=== PATIENT | female | born 1950 | race American Indian/Alaskan Native ===

== ENCOUNTER 2017-05-10 19:12 | Emergency (ER) | payer MEDICARE, OTHER ==
[2017-05-10 19:42] VITALS: BP 92/49
--- NOTE | 2017-05-10 20:53 | EDM.PDOC ---
ED HPI GENERAL MEDICAL PROBLEM - General Chief Complaint: Diabetic Complaint Stated Complaint: HIGH BLOOD SUGAR Time Seen by Provider: 05/10/17 20:40 Source of Information: Reports: Patient History Limitations: Reports: No Limitations - History of Present Illness INITIAL COMMENTS - FREE TEXT/NARRATIVE: This 67 yo female patient reports to the ED with elevated blood sugar levels over the past 2 weeks. The patient reports she was on Levaquin and an increased dose of Prednisone up to last Tuesday or . The patient has seen her primary care provider for the elevated blood sugar levels and was started on another medication to control her blood sugar levels. The patient reports her lowest blood sugar reading today was 255 (this morning). The patient has run blood sugars between 200 and 600 over the past 2 weeks. The patient does have a history of diabetes, COPD, and frequent upper respiratory tract infections. Onset: Gradual Duration: Week(s):, Constant Location: Reports: Other Quality: Reports: Dull Severity: Moderate Improves with: Reports: None Worsens with: Reports: None Associated Symptoms: Reports: Cough (chronic ), Shortness of Breath (chronic) - Related Data Allergies Allergy/AdvReac Type Severity Reaction Status Date / Time alendronate sodium AdvReac Unknown jaw pain Verified 10/13/15 12:47 [From Fosamax] Home Meds: Home Meds LORazepam 1 tab PO TID 11/03/14 [History] Theophylline [Theophylline Anhydrous] 1 tab PO BID 11/03/14 [History] Zolpidem [Ambien] 1 tab PO BEDTIME 11/03/14 [History] Albuterol/Ipratropium [DuoNeb 3.0-0.5 MG/3 ML] 3 ml INH Q4HR PRN 11/04/14 [ History] Aspirin [Halfprin] 81 mg PO DAILY 11/04/14 [History] Docusate Sodium [Colace] 1 cap PO BID PRN 11/04/14 [History] Montelukast [Singulair] 10 mg PO DAILY 11/04/14 [History] Multivitamin [Multivitamins] 1 tab PO DAILY 11/04/14 [History] Pramipexole Di-HCl [Pramipexole Dihydrochloride] 0.5 mg PO BEDTIME 11/04/14 [ History] QUEtiapine Fumarate [Seroquel] 25 mg PO BEDTIME 11/04/14 [History] Travoprost [Travatan Z 0.004% Ophth Soln] 1 drop EYEBOTH BEDTIME 11/04/14 [ History] atorvaSTATin Calcium [Atorvastatin Calcium] 20 mg PO BEDTIME 11/04/14 [History] buPROPion [Wellbutrin XL] 150 mg PO DAILY 11/04/14 [History] metFORMIN HCl [Metformin HCl] 500 mg PO BIDM 11/04/14 [History] Ferrous Sulfate [Iron] 325 mg PO DAILY 11/21/14 [History] Benzonatate [Tessalon Perles] 100 mg PO TID PRN #30 cap 11/27/14 [Rx] Budesonide [Pulmicort] 0.5 mg NEB BIDRT 10/13/15 [History] EPINEPHrine [Epipen] 0.3 mg SUBCUT ASDIRECTED PRN 10/13/15 [History] Tolterodine Tartrate 2 mg PO DAILY 10/13/15 [History] oxyCODONE HCl/Acetaminophen [Percocet 10-325 mg Tablet] 1 tab PO ASDIRECTED [History] glyBURIDE [Micronase] 5 mg PO ACBRK #30 tablet 10/17/15 [Rx] guaiFENesin [Robitussin] 100 mg PO Q6H PRN #1 bottle 10/17/15 [Rx] predniSONE [Prednisone] 10 mg PO DAILY #5 tablet 10/17/15 [Rx] Past Medical History HEENT History: Reports: Allergic Rhinitis, Cataract Respiratory History: Reports: Asthma, Bronchitis, Recurrent, COPD, SOB Genitourinary History: Reports: Urinary Incontinence Musculoskeletal History: Reports: Osteoporosis Other Musculoskeletal History: Restless Leg Syndrome Neurological History: Reports: Other (See Below) Other Neuro History: degenerative joint disease of the spine, closed fracture of cervical vertebra without neurological injury. Psychiatric History: Reports: Bipolar, Depression Endocrine/Metabolic History: Reports: Diabetes, Type II - Past Surgical History HEENT Surgical History: Reports: Cataract Surgery, Naso-Sinus Surgery Cardiovascular Surgical History: Reports: AAA Repair Female Surgical History: Reports: Hysterectomy Social & Family History - Family History Family Medical History: Noncontributory Cardiac: Reports: CAD Endocrine/Metabolic: Reports: Diabetes, type II Oncologic: Reports: Lung - Tobacco Use Smoking Status *Q: Former Smoker Years of Tobacco use: 40 Packs/Tins Daily: 0.5 Used Tobacco, but Quit: No Month Tobacco Last Used: October 2014 Second Hand Smoke Exposure: Yes - Caffeine Use Caffeine Use: Reports: Coffee, Tea - Alcohol Use Days Per Week of Alcohol Use: 0 - Recreational Drug Use Recreational Drug Use: No ED ROS GENERAL - Review of Systems Review Of Systems: ROS reveals no pertinent complaints other than HPI. ED EXAM GENERAL NO PERIP PULSE - Physical Exam Exam: See Below Exam Limited By: No Limitations General Appearance: Alert, WD/WN, Moderate Distress Eye Exam: Bilateral Eye: EOMI, Normal Inspection, PERRL Ears: Normal External Exam, Normal Canal, Hearing Grossly Normal, Normal TMs Nose: Normal Inspection, Normal Mucosa, No Blood Throat/Mouth: Normal Inspection, Normal Lips, Normal Teeth, Normal Gums, Normal Oropharynx, Normal Voice, No Airway Compromise Head: Atraumatic, Normocephalic Neck: Normal Inspection, Supple, Non-Tender, Full Range of Motion Respiratory/Chest: No Respiratory Distress, Lungs Clear, Normal Breath Sounds, No Accessory Muscle Use, Chest Non-Tender Cardiovascular: Normal Peripheral Pulses, Regular Rate, Rhythm, No Edema, No Gallop, No JVD, No Murmur, No Rub GI/Abdominal: Normal Bowel Sounds, Soft, Non-Tender, No Organomegaly, No Distention, No Abnormal Bruit, No Mass (Female) Exam: Deferred Rectal (Female) Exam: Deferred Back Exam: Normal Inspection, Full Range of Motion, NT Extremities: Normal Inspection, Normal Range of Motion, Non-Tender, Normal Capillary Refill, No Pedal Edema Neurological: Alert, Oriented, CN II-XII Intact, Normal Cognition, Normal Gait, Normal Reflexes, No Motor/Sensory Deficits Psychiatric: Normal Affect, Normal Mood Skin Exam: Warm, Dry, Intact, Normal Color, No Rash Lymphatic: No Adenopathy Course - Vital Signs Last Recorded V/S: Last Vital Signs Temp 35.9 C 05/10/17 19:22 Pulse 110 H 05/10/17 19:22 Resp 20 05/10/17 19:22 BP 92/49 L 05/10/17 19:22 Pulse Ox 100 05/10/17 19:22 - Orders/Labs/Meds Orders: Active Orders 24 hr Category Date Time Status Blood Glucose Check, Bedside [RC] ONETIME Care 05/10/17 19:26 Active Labs: Laboratory Tests 05/10/17 05/10/17 05/10/17 Range/Units 19:25 20:55 20:55 WBC 10.4 H (5.0-10.0) 10^3/uL RBC 5.26 (4.2-5.4) 10^6/uL Hgb 14.6 (12.0-16.0) g/dL Hct 46.6 (37.0-47.0) % MCV 88.6 D (80-100) fL MCH 27.8 (27.0-34.0) pg MCHC 31.3 L (33.0-35.0) g/dL Plt Count 225 (150-450) 10^3/uL Neut % (Auto) 77.1 H (42.2-75.2) % Lymph % (Auto) 16.6 L (20.5-50.1) % [place] % (Auto) 5.4 (2-8) % Eos % (Auto) 0.6 L (1.0-3.0) % Baso % (Auto) 0.3 (0.0-1.0) % Sodium 133 L (135-145) mmol/L Potassium 4.5 (3.6-5.0) mmol/L Chloride 91 L (101-111) mmol/L Carbon Dioxide 32.0 H (21.0-31.0) mmol/L Anion Gap 14.5 BUN 10 (7-18) mg/dL Creatinine 0.8 (0.6-1.3) mg/dL Est Cr Clr Drug Dosing 62.24 mL/min Estimated GFR (MDRD) > 60 BUN/Creatinine Ratio 12.50 Glucose 388 H (74-105) mg/dL POC Glucose 393 H (70-105) mg/dl Calcium 8.7 (8.4-10.2) mg/dl Total Bilirubin 0.6 (0.2-1.0) mg/dL AST 20 (10-42) IU/L ALT 22 (10-60) IU/L Alkaline Phosphatase 132 H (42-121) IU/L B-Natriuretic Peptide 34 (0-100) pg/ml Total Protein 7.0 (6.7-8.2) g/dl Albumin 3.9 (3.2-5.5) g/dl Globulin 3.1 Albumin/Globulin Ratio 1.26 Urine Color (YELLOW) Urine Appearance (CLEAR) Urine pH (5.0-9.0) Ur Specific [place] (1.005-1.030) Urine Protein (NEGATIVE) Urine Glucose (UA) (NEGATIVE) Urine Ketones (NEGATIVE) Urine Occult Blood (NEGATIVE) Urine Nitrite (NEGATIVE) Urine Bilirubin (NEGATIVE) Urine Urobilinogen (0.2-1.0) mg/dL Ur Leukocyte Esterase (NEGATIVE) Urine RBC /HPF Urine WBC (0-5/HPF) /HPF Ur Epithelial Cells /HPF Urine Bacteria (0-FEW/HPF) /HPF Urine Yeast (0/HPF) /HPF 05/10/17 Range/Units 21:20 WBC (5.0-10.0) 10^3/uL RBC (4.2-5.4) 10^6/uL Hgb (12.0-16.0) g/dL Hct (37.0-47.0) % MCV (80-100) fL MCH (27.0-34.0) pg MCHC (33.0-35.0) g/dL Plt Count (150-450) 10^3/uL Neut % (Auto) (42.2-75.2) % Lymph % (Auto) (20.5-50.1) % [place] % (Auto) (2-8) % Eos % (Auto) (1.0-3.0) % Baso % (Auto) (0.0-1.0) % Sodium (135-145) mmol/L Potassium (3.6-5.0) mmol/L Chloride (101-111) mmol/L Carbon Dioxide (21.0-31.0) mmol/L Anion Gap BUN (7-18) mg/dL Creatinine (0.6-1.3) mg/dL Est Cr Clr Drug Dosing mL/min Estimated GFR (MDRD) BUN/Creatinine Ratio Glucose (74-105) mg/dL POC Glucose (70-105) mg/dl Calcium (8.4-10.2) mg/dl Total Bilirubin (0.2-1.0) mg/dL AST (10-42) IU/L ALT (10-60) IU/L Alkaline Phosphatase (42-121) IU/L B-Natriuretic Peptide (0-100) pg/ml Total Protein (6.7-8.2) g/dl Albumin (3.2-5.5) g/dl Globulin Albumin/Globulin Ratio Urine Color Yellow (YELLOW) Urine Appearance Slightly cloudy (CLEAR) Urine pH 5.5 (5.0-9.0) Ur Specific [place] 1.010 (1.005-1.030) Urine Protein Negative (NEGATIVE) Urine Glucose (UA) 500 H (NEGATIVE) Urine Ketones Negative (NEGATIVE) Urine Occult Blood Negative (NEGATIVE) Urine Nitrite Negative (NEGATIVE) Urine Bilirubin Negative (NEGATIVE) Urine Urobilinogen 0.2 (0.2-1.0) mg/dL Ur Leukocyte Esterase Negative (NEGATIVE) Urine RBC 0-5 /HPF Urine WBC 0-5 (0-5/HPF) /HPF Ur Epithelial Cells Rare /HPF Urine Bacteria Few (0-FEW/HPF) /HPF Urine Yeast Few H (0/HPF) /HPF Departure - Departure Time of Disposition: 21:54 Disposition: Home, Self-Care 01 Condition: Fair Clinical Impression: Hyperglycemia - Discharge Information Instructions: Type 2 Diabetes Mellitus, Adult, [id number] Forms: ED Department Discharge Care Plan Goals: The patient was advised of the examination and lab results during the visit. The patient was encouraged to take her medications as prescribed. The patient should follow-up with her primary care provider to look at her A1C level. The patient should stick to a diabetic friendly diet. If the patient has any additional symptoms or concerns, the patient should follow-up with her primary care provider or return to the emergency department. - My Orders Last 24 Hours: My Active Orders 05/10/17 19:26 Blood Glucose Check, Bedside [RC] ONETIME - Assessment/Plan Last 24 Hours: My Active Orders 05/10/17 19:26 Blood Glucose Check, Bedside [RC] ONETIME
[2017-05-10 21:22] LABS: CHLORIDE,CL 91 mmol/L (101-111); SODIUM,NA 133 mmol/L (135-145)
== END 2017-05-10 22:05 | disposition home or self-care (01) ==
LOC: DL.ED 19:12
DX: E11.65 Type 2 diabetes mellitus with hyperglycemia (principal); J44.9 Chronic obstructive pulmonary disease, unspecified; F31.9 Bipolar disorder, unspecified; Z90.49 Acquired absence of other specified parts of digestive tract; Z87.891 Personal history of nicotine dependence; Z88.8 Allergy status to other drugs, medicaments and biological substances; Z79.82 Long term (current) use of aspirin; Z79.899 Other long term (current) drug therapy
CPT/HCPCS: 36415; 71020; 80053; 81001; 82962; 83880; 85025; 99283; 99285

== ENCOUNTER 2017-05-17 22:24 | Emergency (ER) | payer MEDICARE, OTHER ==
[2017-05-17] MEDS ORDERED: Sodium Chloride 0.9% 1,000 ML IV ONE (22:45)
[2017-05-17] MEDS ORDERED: Insulin Regular, Human 100 Units/ML 3 ML Vial SUBCUT ONE (22:46)
[2017-05-17 23:24] LABS: CHLORIDE,CL 93 mmol/L (101-111); SODIUM,NA 134 mmol/L (135-145)
--- NOTE | 2017-05-18 00:17 | EDM.PDOC ---
ED HPI GENERAL MEDICAL PROBLEM - General Chief Complaint: General Stated Complaint: BS, [id number] Time Seen by Provider: 05/17/17 22:40 Source of Information: Reports: Patient History Limitations: Reports: No Limitations - History of Present Illness INITIAL COMMENTS - FREE TEXT/NARRATIVE: ED ambulatory with complaint of blood sugars being, greater than 400 over pst week. Has hx of Diabetes, on oral agent. COPD with recent increase on prednisone. Has not seen primary provider, Noted did call and was told to increase Metformin. Currently on same dose as previous. Admits to increased thirst, frequency of voiding and blurring of vision. O2 dependent. Headache Pain Score (Numeric/FACES): 8 - Related Data Allergies Allergy/AdvReac Type Severity Reaction Status Date / Time alendronate sodium AdvReac Unknown jaw pain Verified 05/17/17 22:32 [From Fosamax] Home Meds: Home Meds LORazepam 1 tab PO TID 11/03/14 [History] Theophylline [Theophylline Anhydrous] 1 tab PO BID 11/03/14 [History] Zolpidem [Ambien] 1 tab PO BEDTIME 11/03/14 [History] Albuterol/Ipratropium [DuoNeb 3.0-0.5 MG/3 ML] 3 ml INH Q4HR PRN 11/04/14 [ History] Aspirin [Halfprin] 81 mg PO DAILY 11/04/14 [History] Docusate Sodium [Colace] 1 cap PO BID PRN 11/04/14 [History] Montelukast [Singulair] 10 mg PO DAILY 11/04/14 [History] Multivitamin [Multivitamins] 1 tab PO DAILY 11/04/14 [History] Pramipexole Di-HCl [Pramipexole Dihydrochloride] 0.5 mg PO BEDTIME 11/04/14 [ History] QUEtiapine Fumarate [Seroquel] 25 mg PO BEDTIME 11/04/14 [History] Travoprost [Travatan Z 0.004% Ophth Soln] 1 drop EYEBOTH BEDTIME 11/04/14 [ History] atorvaSTATin Calcium [Atorvastatin Calcium] 20 mg PO BEDTIME 11/04/14 [History] metFORMIN HCl [Metformin HCl] 500 mg PO BIDM 11/04/14 [History] Ferrous Sulfate [Iron] 325 mg PO DAILY 11/21/14 [History] Benzonatate [Tessalon Perles] 100 mg PO TID PRN #30 cap 11/27/14 [Rx] Budesonide [Pulmicort] 0.5 mg NEB BIDRT 10/13/15 [History] EPINEPHrine [Epipen] 0.3 mg SUBCUT ASDIRECTED PRN 10/13/15 [History] Tolterodine Tartrate 2 mg PO DAILY 10/13/15 [History] oxyCODONE HCl/Acetaminophen [Percocet 10-325 mg Tablet] 1 tab PO ASDIRECTED [History] glyBURIDE [Micronase] 5 mg PO ACBRK #30 tablet 10/17/15 [Rx] guaiFENesin [Robitussin] 100 mg PO Q6H PRN #1 bottle 10/17/15 [Rx] predniSONE [Prednisone] 10 mg PO DAILY #5 tablet 10/17/15 [Rx] Past Medical History HEENT History: Reports: Allergic Rhinitis, Cataract Respiratory History: Reports: Asthma, Bronchitis, Recurrent, COPD, SOB Gastrointestinal History: Reports: None Genitourinary History: Reports: Urinary Incontinence Musculoskeletal History: Reports: Osteoporosis Other Musculoskeletal History: Restless Leg Syndrome Neurological History: Reports: Other (See Below) Other Neuro History: degenerative joint disease of the spine, closed fracture of cervical vertebra without neurological injury. Psychiatric History: Reports: Bipolar, Depression Endocrine/Metabolic History: Reports: Diabetes, Type II Hematologic History: Reports: None Immunologic History: Reports: None Oncologic (Cancer) History: Reports: None Dermatologic History: Reports: None - Past Surgical History HEENT Surgical History: Reports: Cataract Surgery, Naso-Sinus Surgery Cardiovascular Surgical History: Reports: AAA Repair Female Surgical History: Reports: Hysterectomy Social & Family History - Family History Family Medical History: Noncontributory Cardiac: Reports: CAD Endocrine/Metabolic: Reports: Diabetes, type II Oncologic: Reports: Lung - Tobacco Use Smoking Status *Q: Former Smoker Years of Tobacco use: 40 Packs/Tins Daily: 0.5 Used Tobacco, but Quit: No Month Tobacco Last Used: October 2014 Second Hand Smoke Exposure: Yes - Caffeine Use Caffeine Use: Reports: Coffee, Tea - Alcohol Use Days Per Week of Alcohol Use: 0 - Recreational Drug Use Recreational Drug Use: No ED ROS GENERAL - Review of Systems Review Of Systems: See Below Constitutional: Reports: Malaise HEENT: Reports: Vision Change Respiratory: Reports: Other (chronic, no acute change) Cardiovascular: Reports: No Symptoms GI/Abdominal: Reports: No Symptoms : Reports: Frequency Musculoskeletal: Reports: No Symptoms Skin: Reports: No Symptoms Neurological: Reports: No Symptoms ED EXAM, GENERAL - Physical Exam Exam: See Below Exam Limited By: No Limitations General Appearance: Alert, Anxious Ears: Normal External Exam, Normal TMs Nose: Normal Inspection Throat/Mouth: Normal Inspection Head: Atraumatic, Normocephalic Neck: Normal Inspection Respiratory/Chest: No Respiratory Distress, Lungs Clear, Prolonged Expiration. No: Rhonchi, Wheezing Cardiovascular: Normal Peripheral Pulses, Regular Rate, Rhythm, No Edema, No JVD , Tachycardia Extremities: Normal Inspection, Normal Range of Motion Neurological: Alert, Oriented, Normal Cognition, No Motor/Sensory Deficits Psychiatric: Normal Affect, Normal Mood Skin Exam: Warm, Dry, Intact, Normal Color Course - Vital Signs Last Recorded V/S: Last Vital Signs Temp 97.5 F 05/17/17 22:27 Pulse 102 H 05/18/17 00:25 Resp 18 05/18/17 00:25 BP 119/94 H 05/18/17 00:25 Pulse Ox 97 05/18/17 00:25 - Orders/Labs/Meds Orders: Active Orders 24 hr Category Date Time Status Glucose [Blood Glucose Check, Bedside] [RC] ONETIME Care 05/17/17 22:29 Active Glucose [Blood Glucose Check, Bedside] [RC] ONETIME Care 05/17/17 23:19 Active Glucose [Blood Glucose Check, Bedside] [RC] ONETIME Care 05/18/17 00:11 Active Labs: Laboratory Tests 05/17/17 05/17/17 05/17/17 Range/Units 22:31 22:45 22:45 WBC 11.2 H (5.0-10.0) 10^3/uL RBC 5.49 H (4.2-5.4) 10^6/uL Hgb 15.3 (12.0-16.0) g/dL Hct 49.6 H (37.0-47.0) % MCV 90.3 (80-100) fL MCH 27.9 (27.0-34.0) pg MCHC 30.8 L (33.0-35.0) g/dL Plt Count 240 (150-450) 10^3/uL Neut % (Auto) 90.8 H (42.2-75.2) % Lymph % (Auto) 6.9 L (20.5-50.1) % [place] % (Auto) 1.9 L (2-8) % Eos % (Auto) 0.1 L (1.0-3.0) % Baso % (Auto) 0.3 (0.0-1.0) % Sodium 134 L (135-145) mmol/L Potassium 5.0 (3.6-5.0) mmol/L Chloride 93 L (101-111) mmol/L Carbon Dioxide 32.0 H (21.0-31.0) mmol/L Anion Gap 14.0 BUN 16 (7-18) mg/dL Creatinine 0.9 (0.6-1.3) mg/dL Est Cr Clr Drug Dosing 55.33 mL/min Estimated GFR (MDRD) > 60 BUN/Creatinine Ratio 17.77 Glucose 604 H* (74-105) mg/dL POC Glucose > 500 H* (70-105) mg/dl Lactic Acid (0.5-2.2) mmol/L Calcium 9.5 (8.4-10.2) mg/dl Total Bilirubin 0.6 (0.2-1.0) mg/dL AST 23 (10-42) IU/L ALT 20 (10-60) IU/L Alkaline Phosphatase 128 H (42-121) IU/L CK-MB (CK-2) (0.4-4.7) ng/mL Troponin I < 0.02 (0.00-0.02) ng/ml B-Natriuretic Peptide 33 (0-100) pg/ml Total Protein 7.8 (6.7-8.2) g/dl Albumin 4.1 (3.2-5.5) g/dl Globulin 3.7 Albumin/Globulin Ratio 1.11 Urine Color (YELLOW) Urine Appearance (CLEAR) Urine pH (5.0-9.0) Ur Specific [place] (1.005-1.030) Urine Protein (NEGATIVE) Urine Glucose (UA) (NEGATIVE) Urine Ketones (NEGATIVE) Urine Occult Blood (NEGATIVE) Urine Nitrite (NEGATIVE) Urine Bilirubin (NEGATIVE) Urine Urobilinogen (0.2-1.0) mg/dL Ur Leukocyte Esterase (NEGATIVE) Urine RBC /HPF Urine WBC (0-5/HPF) /HPF Ur Epithelial Cells /HPF Urine Bacteria (0-FEW/HPF) /HPF Urine Yeast (0/HPF) /HPF 05/17/17 05/17/17 05/17/17 Range/Units 22:45 22:45 23:00 WBC (5.0-10.0) 10^3/uL RBC (4.2-5.4) 10^6/uL Hgb (12.0-16.0) g/dL Hct (37.0-47.0) % MCV (80-100) fL MCH (27.0-34.0) pg MCHC (33.0-35.0) g/dL Plt Count (150-450) 10^3/uL Neut % (Auto) (42.2-75.2) % Lymph % (Auto) (20.5-50.1) % [place] % (Auto) (2-8) % Eos % (Auto) (1.0-3.0) % Baso % (Auto) (0.0-1.0) % Sodium (135-145) mmol/L Potassium (3.6-5.0) mmol/L Chloride (101-111) mmol/L Carbon Dioxide (21.0-31.0) mmol/L Anion Gap BUN (7-18) mg/dL Creatinine (0.6-1.3) mg/dL Est Cr Clr Drug Dosing mL/min Estimated GFR (MDRD) BUN/Creatinine Ratio Glucose (74-105) mg/dL POC Glucose (70-105) mg/dl Lactic Acid 2.7 H (0.5-2.2) mmol/L Calcium (8.4-10.2) mg/dl Total Bilirubin (0.2-1.0) mg/dL AST (10-42) IU/L ALT (10-60) IU/L Alkaline Phosphatase (42-121) IU/L CK-MB (CK-2) 0.00 L (0.4-4.7) ng/mL Troponin I (0.00-0.02) ng/ml B-Natriuretic Peptide (0-100) pg/ml Total Protein (6.7-8.2) g/dl Albumin (3.2-5.5) g/dl Globulin Albumin/Globulin Ratio Urine Color Light yellow (YELLOW) Urine Appearance Clear (CLEAR) Urine pH 6.0 (5.0-9.0) Ur Specific [place] <= 1.005 (1.005-1.030) Urine Protein Negative (NEGATIVE) Urine Glucose (UA) 500 H (NEGATIVE) Urine Ketones Negative (NEGATIVE) Urine Occult Blood Negative (NEGATIVE) Urine Nitrite Negative (NEGATIVE) Urine Bilirubin Negative (NEGATIVE) Urine Urobilinogen 0.2 (0.2-1.0) mg/dL Ur Leukocyte Esterase Negative (NEGATIVE) Urine RBC 0-5 /HPF Urine WBC 0-5 (0-5/HPF) /HPF Ur Epithelial Cells Few /HPF Urine Bacteria Few (0-FEW/HPF) /HPF Urine Yeast Few H (0/HPF) /HPF 05/17/17 05/18/17 Range/Units 23:42 00:15 WBC (5.0-10.0) 10^3/uL RBC (4.2-5.4) 10^6/uL Hgb (12.0-16.0) g/dL Hct (37.0-47.0) % MCV (80-100) fL MCH (27.0-34.0) pg MCHC (33.0-35.0) g/dL Plt Count (150-450) 10^3/uL Neut % (Auto) (42.2-75.2) % Lymph % (Auto) (20.5-50.1) % [place] % (Auto) (2-8) % Eos % (Auto) (1.0-3.0) % Baso % (Auto) (0.0-1.0) % Sodium (135-145) mmol/L Potassium (3.6-5.0) mmol/L Chloride (101-111) mmol/L Carbon Dioxide (21.0-31.0) mmol/L Anion Gap BUN (7-18) mg/dL Creatinine (0.6-1.3) mg/dL Est Cr Clr Drug Dosing mL/min Estimated GFR (MDRD) BUN/Creatinine Ratio Glucose (74-105) mg/dL POC Glucose 450 H* 398 H (70-105) mg/dl Lactic Acid (0.5-2.2) mmol/L Calcium (8.4-10.2) mg/dl Total Bilirubin (0.2-1.0) mg/dL AST (10-42) IU/L ALT (10-60) IU/L Alkaline Phosphatase (42-121) IU/L CK-MB (CK-2) (0.4-4.7) ng/mL Troponin I (0.00-0.02) ng/ml B-Natriuretic Peptide (0-100) pg/ml Total Protein (6.7-8.2) g/dl Albumin (3.2-5.5) g/dl Globulin Albumin/Globulin Ratio Urine Color (YELLOW) Urine Appearance (CLEAR) Urine pH (5.0-9.0) Ur Specific [place] (1.005-1.030) Urine Protein (NEGATIVE) Urine Glucose (UA) (NEGATIVE) Urine Ketones (NEGATIVE) Urine Occult Blood (NEGATIVE) Urine Nitrite (NEGATIVE) Urine Bilirubin (NEGATIVE) Urine Urobilinogen (0.2-1.0) mg/dL Ur Leukocyte Esterase (NEGATIVE) Urine RBC /HPF Urine WBC (0-5/HPF) /HPF Ur Epithelial Cells /HPF Urine Bacteria (0-FEW/HPF) /HPF Urine Yeast (0/HPF) /HPF Meds: Medications Discontinued Medications Generic Name Dose Route Start Last Admin Trade Name Freq PRN Reason Stop Dose Admin Sodium Chloride 1,000 mls @ 150 mls/hr 05/17/17 22:45 05/17/17 22:54 Normal Saline IV 05/18/17 05:24 150 mls/hr .BOLUS ONE Administration Insulin Human Regular 10 unit 05/17/17 22:46 05/17/17 22:58 Humulin R SUBCUT 05/17/17 22:47 10 units ONETIME ONE Administration Protocol Departure - Departure Time of Disposition: 00:35 Disposition: Home, Self-Care 01 Condition: Fair Clinical Impression: Hyperglycemia, Severe chronic obstructive pulmonary disease Diabetes mellitus Qualifiers: Diabetes mellitus type: type 2 Diabetes mellitus complication status: with unspecified complications Diabetes mellitus snf insulin use: without middle or intermediate school principal use Qualified Code(s): E11.8 - Type 2 diabetes mellitus with unspecified complications - Discharge Information Instructions: Hyperglycemia Forms: ED Department Discharge Additional Instructions: increase metformin 1000mg twice daily see Primary care this week continue to monitor blood sugars at least 3 times daily - My Orders Last 24 Hours: My Active Orders 05/17/17 22:29 Glucose [Blood Glucose Check, Bedside] [RC] ONETIME 10/17/17 23:19 Glucose [Blood Glucose Check, Bedside] [RC] ONETIME 05/18/17 00:11 Glucose [Blood Glucose Check, Bedside] [RC] ONETIME - Assessment/Plan Last 24 Hours: My Active Orders 05/17/17 22:29 Glucose [Blood Glucose Check, Bedside] [RC] ONETIME 05/17/17 23:19 Glucose [Blood Glucose Check, Bedside] [RC] ONETIME 05/18/17 00:11 Glucose [Blood Glucose Check, Bedside] [RC] ONETIME
[2017-05-18 00:26] VITALS: BP 119/94
== END 2017-05-18 00:34 | disposition home or self-care (01) ==
LOC: DL.ED 22:24
DX: E11.65 Type 2 diabetes mellitus with hyperglycemia (principal); J44.9 Chronic obstructive pulmonary disease, unspecified; F31.9 Bipolar disorder, unspecified; Z88.8 Allergy status to other drugs, medicaments and biological substances; Z79.899 Other long term (current) drug therapy; Z87.891 Personal history of nicotine dependence
CPT/HCPCS: 36415; 71010; 80053; 81001; 82553; 82962; 83605; 83880; 84484; 85025; 96360; 96361; 99283; J1815; J7030

== ENCOUNTER 2018-08-08 13:08 | Emergency (ER) | payer MEDICARE, OTHER ==
--- NOTE | 2018-08-08 13:27 | EDM.PDOC ---
ED HPI GENERAL MEDICAL PROBLEM - General Chief Complaint: Cardiovascular Problem Stated Complaint: HEART PROBLEMS [id number] Time Seen by Provider: 08/08/18 13:26 Source of Information: Reports: Patient, Family, RN History Limitations: Reports: No Limitations - History of Present Illness INITIAL COMMENTS - FREE TEXT/NARRATIVE: Pt presents to ER from home by POV with c/o pain and burning with urination for several days. She also states that she has not been to see her clinic doctor for about a year for a check up and has been worrying because her doctor told her she might have CHF. She admits to recurrent episodes of sharp jabbing pains at the left chest which she worries might be from her heart. Her daughter states that she has had some episodes of near syncope during the past year, but has not gone to the doctor. Pt denies cough, fever, chills, edema, palpitations , or orthopnea. She admits to chronic shortness of breath for several years. Duration: Day(s): (3-4) Location: Reports: Chest, Other (Urinary) Quality: Reports: Burning, Sharp Severity: Moderate Improves with: Reports: None Worsens with: Reports: None Associated Symptoms: Reports: No Other Symptoms - Related Data Allergies Allergy/AdvReac Type Severity Reaction Status Date / Time alendronate sodium AdvReac Unknown jaw pain Verified 05/17/17 22:32 [From Fosamax] Home Meds: Home Meds LORazepam 1 tab PO TID 11/03/14 [History] Theophylline [Theophylline Anhydrous] 1 tab PO BID 11/03/14 [History] Zolpidem [Ambien] 1 tab PO BEDTIME 11/03/14 [History] Albuterol/Ipratropium [DuoNeb 3.0-0.5 MG/3 ML] 3 ml INH Q4HR PRN 11/04/14 [ History] Aspirin [Halfprin] 81 mg PO DAILY 11/04/14 [History] Docusate Sodium [Colace] 1 cap PO BID PRN 11/04/14 [History] Montelukast [Singulair] 10 mg PO DAILY 11/04/14 [History] Multivitamin [Multivitamins] 1 tab PO DAILY 11/04/14 [History] Pramipexole Di-HCl [Pramipexole Dihydrochloride] 0.5 mg PO BEDTIME 11/04/14 [ History] QUEtiapine Fumarate [Seroquel] 25 mg PO BEDTIME 11/04/14 [History] Travoprost [Travatan Z 0.004% Ophth Soln] 1 drop EYEBOTH BEDTIME 11/04/14 [ History] atorvaSTATin Calcium [Atorvastatin Calcium] 20 mg PO BEDTIME 11/04/14 [History] metFORMIN HCl [Metformin HCl] 500 mg PO BIDM 11/04/14 [History] Ferrous Sulfate [Iron] 325 mg PO DAILY 11/21/14 [History] Benzonatate [Tessalon Perles] 100 mg PO TID PRN #30 cap 11/27/14 [Rx] Budesonide [Pulmicort] 0.5 mg NEB BIDRT 10/13/15 [History] EPINEPHrine [Epipen] 0.3 mg SUBCUT ASDIRECTED PRN 10/13/15 [History] Tolterodine Tartrate 2 mg PO DAILY 10/13/15 [History] oxyCODONE HCl/Acetaminophen [Percocet 10-325 mg Tablet] 1 tab PO ASDIRECTED [History] glyBURIDE [Micronase] 5 mg PO ACBRK #30 tablet 10/17/15 [Rx] guaiFENesin [Robitussin] 100 mg PO Q6H PRN #1 bottle 10/17/15 [Rx] predniSONE [Prednisone] 10 mg PO DAILY #5 tablet 10/17/15 [Rx] Past Medical History HEENT History: Reports: Allergic Rhinitis, Cataract Respiratory History: Reports: Asthma, Bronchitis, Recurrent, COPD, SOB Gastrointestinal History: Reports: None Genitourinary History: Reports: Urinary Incontinence Musculoskeletal History: Reports: Osteoporosis Other Musculoskeletal History: Restless Leg Syndrome Neurological History: Reports: Other (See Below) Other Neuro History: degenerative joint disease of the spine, closed fracture of cervical vertebra without neurological injury. Psychiatric History: Reports: Bipolar, Depression Endocrine/Metabolic History: Reports: Diabetes, Type II Hematologic History: Reports: None Immunologic History: Reports: None Oncologic (Cancer) History: Reports: None Dermatologic History: Reports: None - Past Surgical History HEENT Surgical History: Reports: Cataract Surgery, Naso-Sinus Surgery Cardiovascular Surgical History: Reports: AAA Repair Female Surgical History: Reports: Hysterectomy Social & Family History - Family History Family Medical History: Noncontributory Cardiac: Reports: CAD Endocrine/Metabolic: Reports: Diabetes, type II Oncologic: Reports: Lung - Caffeine Use Caffeine Use: Reports: Coffee, Tea - Living Situation & Occupation Living situation: Reports: with Family Occupation: Retired ED ROS GENERAL - Review of Systems Review Of Systems: ROS reveals no pertinent complaints other than HPI. ED EXAM, GENERAL - Physical Exam Exam: See Below Exam Limited By: No Limitations General Appearance: Alert, WD/WN, No Apparent Distress, Anxious Eye Exam: Bilateral Eye: Normal Inspection Nose: Normal Inspection, Normal Mucosa, No Blood Throat/Mouth: Normal Inspection, Normal Lips, Normal Oropharynx, Normal Voice, No Airway Compromise Head: Atraumatic, Normocephalic Neck: Normal Inspection, Supple, Non-Tender, Full Range of Motion Respiratory/Chest: No Respiratory Distress, No Accessory Muscle Use, Chest Non- Tender, Decreased Breath Sounds, Crackles (course breath sounds). No: Rales, Rhonchi, Wheezing Cardiovascular: Regular Rate, Rhythm, No Edema, No JVD, No Murmur GI/Abdominal: Normal Bowel Sounds, Soft, No Distention, No Abnormal Bruit, Tender (Suprapubic tenderness). No: Guarding, Rigid, Rebound (Female) Exam: Deferred Rectal (Female) Exam: Deferred Back Exam: Normal Inspection, Full Range of Motion. No: CVA Tenderness (L), CVA Tenderness (R) Extremities: Normal Inspection, Normal Range of Motion, Non-Tender, Normal Capillary Refill, No Pedal Edema Neurological: Alert, Oriented, Normal Cognition, Normal Gait, No Motor/Sensory Deficits Psychiatric: Anxious Skin Exam: Warm, Dry, Intact, Normal Color, No Rash EKG INTERPRETATION EKG Date: 08/08/18 Time: 13:53 Rhythm: Other (SR) Rate (Beats/Min): 73 [place]: LAD-Left [place] Deviation P-Wave: Present QRS: Other (early precordial R/S transition, inferior Q waves) ST-T: Normal QT: Normal Comparison: NA - No Prior EKG Course - Vital Signs Last Recorded V/S: see piece dyeing machine tender for VS, reviewed by me. - Orders/Labs/Meds Orders: Active Orders 24 hr Category Date Time Status EKG 12 Lead [EKG Documentation Completion] [RC] STAT Care 08/08/18 13:49 Active Labs: Laboratory Tests 08/08/18 08/08/18 08/08/18 Range/Units 13:27 14:06 14:06 WBC 10.3 H (5.0-10.0) 10^3/uL RBC 4.36 (4.2-5.4) 10^6/uL Hgb 12.6 D (12.0-16.0) g/dL Hct 40.2 (37.0-47.0) % MCV 92.2 (80-100) fL MCH 28.9 (27.0-34.0) pg MCHC 31.3 L (33.0-35.0) g/dL Plt Count 225 (150-450) 10^3/uL Neut % (Auto) 81.6 H (42.2-75.2) % Lymph % (Auto) 11.3 L (20.5-50.1) % [place] % (Auto) 5.7 (2-8) % Eos % (Auto) 1.3 (1.0-3.0) % Baso % (Auto) 0.1 (0.0-1.0) % Sodium 140 (135-145) mmol/L Potassium 3.8 (3.6-5.0) mmol/L Chloride 101 (101-111) mmol/L Carbon Dioxide 30.0 (21.0-31.0) mmol/L Anion Gap 12.8 BUN 11 (7-18) mg/dL Creatinine 0.5 L (0.6-1.3) mg/dL Est Cr Clr Drug Dosing TNP Estimated GFR (MDRD) > 60 BUN/Creatinine Ratio 22.00 Glucose 112 H (74-105) mg/dL Calcium 8.0 L D (8.4-10.2) mg/dl Total Bilirubin 0.3 (0.2-1.0) mg/dL AST 13 (10-42) IU/L ALT 7 L (10-60) IU/L Alkaline Phosphatase 72 (42-121) IU/L Troponin I < 0.02 (0.00-0.02) ng/ml B-Natriuretic Peptide 134 H (0-100) pg/ml Total Protein 6.2 L (6.7-8.2) g/dl Albumin 3.3 (3.2-5.5) g/dl Globulin 2.9 Albumin/Globulin Ratio 1.14 Urine Color Yellow (YELLOW) Urine Appearance Clear (CLEAR) Urine pH 6.0 (5.0-9.0) Ur Specific [place] >= 1.030 (1.005-1.030) Urine Protein 30 H (NEGATIVE) Urine Glucose (UA) Negative (NEGATIVE) Urine Ketones Trace H (NEGATIVE) Urine Occult Blood Negative (NEGATIVE) Urine Nitrite Negative (NEGATIVE) Urine Bilirubin Small H (NEGATIVE) Urine Urobilinogen 1.0 (0.2-1.0) mg/dL Ur Leukocyte Esterase Trace H (NEGATIVE) Urine RBC Not seen /HPF Urine WBC 5-10 H (0-5/HPF) /HPF Ur Epithelial Cells Many H /HPF Urine Bacteria Moderate H (0-FEW/HPF) /HPF Urine Mucus Many H /LPF Meds: Medications Discontinued Medications Generic Name Dose Route Start Last Admin Trade Name Freq PRN Reason Stop Dose Admin Cephalexin 500 mg 08/08/18 14:57 08/08/18 15:07 Keflex PO 08/08/18 14:58 500 mg ONETIME ONE Administration - Radiology Interpretation Free Text/Narrative:: CXR: bronchial inflammatory changes, nonconsolidated RLL patchiness new compared to prior 2017 film; see Rad report. Departure - Departure Time of Disposition: 14:56 Disposition: Home, Self-Care 01 Condition: Good Clinical Impression: Atypical chest pain UTI (urinary tract infection) Qualifiers: Urinary tract infection type: acute cystitis Hematuria presence: without hematuria Qualified Code(s): N30.00 - Acute cystitis without hematuria COPD (chronic obstructive pulmonary disease) Qualifiers: COPD type: unspecified COPD Qualified Code(s): J44.9 - Chronic obstructive pulmonary disease, unspecified Instructions: Urinary Tract Infection, Adult, Nonspecific Chest Pain, Easy-to- Read Forms: ED Department Discharge Additional Instructions: Rx: Cephalexin 500mg Follow up in clinic next week for urine recheck and ask your doctor about a referral for a cardiac stress test. Return to ER if worse at any time. - My Orders Last 24 Hours: My Active Orders 08/08/18 13:49 EKG 12 Lead [EKG Documentation Completion] [RC] STAT - Assessment/Plan Last 24 Hours: My Active Orders 08/08/18 13:49 EKG 12 Lead [EKG Documentation Completion] [RC] STAT
[2018-08-08 14:37] LABS: ANION GAP 12.8; CHLORIDE,CL 101 mmol/L (101-111); SODIUM,NA 140 mmol/L (135-145)
--- NOTE | 2018-08-08 14:54 | CR ---
Clinical history: 68-year-old female with chest pain reported on 17 May 2017 exam to have "no active disease". CONCLUSION: Chronic shaggy bronchitic pattern and some patchy new nonconsolidated right perihilar/lower lobe infiltrate. Normal cardiac silhouette without new signs of alveolar edema or dependent pleural effusion compared to May 2017 film. No new lung mass hilar lymphadenopathy or other focal lobar consolidation (infiltrate/atelectasis). No pneumothorax or free subdiaphragmatic air. CONCLUSION: Bronchial inflammatory changes and patchy new nonconsolidative right lower lobe density. (See above) Fever?
[2018-08-08] MEDS ORDERED: Cephalexin 500 MG Cap PO ONE (14:57)
[2018-08-08 15:34] VITALS: BP 142/72
== END 2018-08-08 15:39 | disposition home or self-care (01) ==
LOC: DL.ED 13:08
DX: N30.00 Acute cystitis without hematuria (principal); J44.9 Chronic obstructive pulmonary disease, unspecified; R07.89 Other chest pain; E11.9 Type 2 diabetes mellitus without complications; Z88.8 Allergy status to other drugs, medicaments and biological substances; Z79.899 Other long term (current) drug therapy
CPT/HCPCS: 36415; 71045; 80053; 81001; 83880; 84484; 85025; 93005; 99285; A9270

== ENCOUNTER 2018-08-17 21:51 | Emergency (ER) | payer MEDICARE, OTHER ==
[~2018-08-17 21:51] MED LIST: Albuterol/Ipratropium 3.0-0.5 MG/3 ML Neb Soln NEB ONE; methylPREDNISolone Sodium Succinate 125 MG/2 ML SDV IVPUSH ONE
--- NOTE | 2018-08-17 21:52 | EDM.PDOC ---
ED HPI GENERAL MEDICAL PROBLEM - General Chief Complaint: Respiratory Problem Stated Complaint: ? PNEUMONIA Time Seen by Provider: 08/17/18 21:50 Source of Information: Reports: Patient, EMS History Limitations: Reports: No Limitations - History of Present Illness INITIAL COMMENTS - FREE TEXT/NARRATIVE: 2 weeks h/o worsening SOB, EMS arrived @ O2 80s. pt been coughing with dark sputum, worried about pneumonia. - Related Data Allergies Allergy/AdvReac Type Severity Reaction Status Date / Time No Known Allergies Allergy Verified 08/17/18 21:58 Home Meds: Home Meds LORazepam 1 tab PO TID 11/03/14 [History] Theophylline [Theophylline Anhydrous] 1 tab PO BID 11/03/14 [History] Zolpidem [Ambien] 1 tab PO BEDTIME 11/03/14 [History] Albuterol/Ipratropium [DuoNeb 3.0-0.5 MG/3 ML] 3 ml INH Q4HR PRN 11/04/14 [ History] Aspirin [Halfprin] 81 mg PO DAILY 11/04/14 [History] Docusate Sodium [Colace] 1 cap PO BID PRN 11/04/14 [History] Montelukast [Singulair] 10 mg PO DAILY 11/04/14 [History] Multivitamin [Multivitamins] 1 tab PO DAILY 11/04/14 [History] Pramipexole Di-HCl [Pramipexole Dihydrochloride] 0.5 mg PO BEDTIME 11/04/14 [ History] QUEtiapine Fumarate [Seroquel] 25 mg PO BEDTIME 11/04/14 [History] Travoprost [Travatan Z 0.004% Oph Soln] 1 drop EYEBOTH BEDTIME 11/04/14 [ History] atorvaSTATin Calcium [Atorvastatin Calcium] 20 mg PO BEDTIME 11/04/14 [History] metFORMIN HCl [Metformin HCl] 500 mg PO BIDM 11/04/14 [History] Ferrous Sulfate [Iron] 325 mg PO DAILY 11/21/14 [History] Benzonatate [Tessalon Perles] 100 mg PO TID PRN #30 cap 11/27/14 [Rx] Budesonide [Pulmicort] 0.5 mg NEB BIDRT 10/13/15 [History] EPINEPHrine [Epipen] 0.3 mg SUBCUT ASDIRECTED PRN 10/13/15 [History] Tolterodine Tartrate 2 mg PO DAILY 10/13/15 [History] oxyCODONE HCl/Acetaminophen [Percocet 10-325 mg Tablet] 1 tab PO ASDIRECTED [History] glyBURIDE [Micronase] 5 mg PO ACBRK #30 tablet 10/17/15 [Rx] guaiFENesin [Robitussin] 100 mg PO Q6H PRN #1 bottle 10/17/15 [Rx] predniSONE [Prednisone] 10 mg PO DAILY #5 tablet 10/17/15 [Rx] Past Medical History HEENT History: Reports: Allergic Rhinitis, Cataract Respiratory History: Reports: Asthma, Bronchitis, Recurrent, COPD, SOB Gastrointestinal History: Reports: None Genitourinary History: Reports: Urinary Incontinence Musculoskeletal History: Reports: Osteoporosis Other Musculoskeletal History: Restless Leg Syndrome Neurological History: Reports: Other (See Below) Other Neuro History: degenerative joint disease of the spine, closed fracture of cervical vertebra without neurological injury. Psychiatric History: Reports: Bipolar, Depression Endocrine/Metabolic History: Reports: Diabetes, Type II Hematologic History: Reports: None Immunologic History: Reports: None Oncologic (Cancer) History: Reports: None Dermatologic History: Reports: None - Past Surgical History HEENT Surgical History: Reports: Cataract Surgery, Naso-Sinus Surgery Cardiovascular Surgical History: Reports: AAA Repair Female Surgical History: Reports: Hysterectomy Social & Family History - Family History Family Medical History: Noncontributory Cardiac: Reports: CAD Endocrine/Metabolic: Reports: Diabetes, type II Oncologic: Reports: Lung - Caffeine Use Caffeine Use: Reports: Coffee, Tea - Living Situation & Occupation Living situation: Reports: with Family Occupation: Retired ED ROS GENERAL - Review of Systems Review Of Systems: ROS reveals no pertinent complaints other than HPI. ED EXAM, GENERAL - Physical Exam Exam: See Below Exam Limited By: No Limitations General Appearance: Alert, WD/WN, Mild Distress, Other (discomfort) Ears: Hearing Grossly Normal Throat/Mouth: Normal Voice, No Airway Compromise Head: Atraumatic Neck: Non-Tender, Full Range of Motion Respiratory/Chest: Decreased Breath Sounds, Rales, Rhonchi, Wheezing Cardiovascular: Regular Rate, Rhythm GI/Abdominal: Soft, Non-Tender Neurological: Alert, Oriented, Normal Cognition, No Motor/Sensory Deficits Psychiatric: Flat Affect Skin Exam: Warm, Dry, Normal Color Lymphatic: No Adenopathy Course - Vital Signs Last Recorded V/S: Last Vital Signs Temp 37.9 C 08/17/18 21:57 Pulse 108 H 08/17/18 21:57 Resp 20 08/17/18 21:57 BP 133/67 08/17/18 21:57 Pulse Ox 88 L 08/17/18 21:57 - Orders/Labs/Meds Orders: Active Orders 24 hr Category Date Time Status EKG 12 Lead [EKG Documentation Completion] [RC] STAT Care 08/17/18 21:49 Active RT Aerosol Therapy [RC] ASDIRECTED Care 08/17/18 21:47 Active Chest 1V Frontal [CR] Urgent Exams 08/17/18 21:48 Taken CULTURE BLOOD [BC] Stat Lab 08/17/18 21:58 Received CULTURE URINE [RM] Stat Lab 08/17/18 22:18 Received Morphine Med 08/17/18 22:52 Once 2 mg IVPUSH ONETIME ONE Ondansetron [Zofran] Med 08/17/18 22:52 Once 4 mg IV ONETIME ONE Sodium Chloride 0.9% [Normal Saline] 1,000 ml Med 08/17/18 22:15 Active IV ASDIRECTED Medication Orders Sodium Chloride (Normal Saline) 1,000 mls @ 100 mls/hr IV ASDIRECTED MOOK Last Admin: 08/17/18 22:06 Dose: 100 mls/hr Labs: Laboratory Tests 08/17/18 08/17/18 08/17/18 Range/Units 21:48 21:58 21:58 WBC 10.3 H (5.0-10.0) 10^3/uL RBC 4.89 (4.2-5.4) 10^6/uL Hgb 14.1 D (12.0-16.0) g/dL Hct 44.1 (37.0-47.0) % MCV 90.2 (80-100) fL MCH 28.8 (27.0-34.0) pg MCHC 32.0 L (33.0-35.0) g/dL Plt Count 194 (150-450) 10^3/uL Neut % (Auto) 90.4 H (42.2-75.2) % Lymph % (Auto) 4.8 L (20.5-50.1) % [place] % (Auto) 3.2 (2-8) % Eos % (Auto) 1.5 (1.0-3.0) % Baso % (Auto) 0.1 (0.0-1.0) % Sodium 132 L (135-145) mmol/L Potassium 4.0 (3.6-5.0) mmol/L Chloride 90 L (101-111) mmol/L Carbon Dioxide 28.0 (21.0-31.0) mmol/L Anion Gap 18.0 BUN 15 (7-18) mg/dL Creatinine 0.8 (0.6-1.3) mg/dL Est Cr Clr Drug Dosing 61.40 mL/min Estimated GFR (MDRD) > 60 BUN/Creatinine Ratio 18.75 Glucose 168 H (74-105) mg/dL POC Glucose 160 H (70-105) mg/dl Lactic Acid (0.5-2.2) mmol/L Calcium 8.5 (8.4-10.2) mg/dl Total Bilirubin 0.7 (0.2-1.0) mg/dL AST 16 (10-42) IU/L ALT 11 (10-60) IU/L Alkaline Phosphatase 81 (42-121) IU/L Troponin I 0.34 H* (0.00-0.02) ng/ml B-Natriuretic Peptide (0-100) pg/ml Total Protein 7.0 (6.7-8.2) g/dl Albumin 3.6 (3.2-5.5) g/dl Globulin 3.4 Albumin/Globulin Ratio 1.06 Urine Color (YELLOW) Urine Appearance (CLEAR) Urine pH (5.0-9.0) Ur Specific [place] (1.005-1.030) Urine Protein (NEGATIVE) Urine Glucose (UA) (NEGATIVE) Urine Ketones (NEGATIVE) Urine Occult Blood (NEGATIVE) Urine Nitrite (NEGATIVE) Urine Bilirubin (NEGATIVE) Urine Urobilinogen (0.2-1.0) mg/dL Ur Leukocyte Esterase (NEGATIVE) Urine RBC /HPF Urine WBC (0-5/HPF) /HPF Ur Epithelial Cells /HPF Urine Bacteria (0-FEW/HPF) /HPF 08/17/18 08/17/18 08/17/18 Range/Units 21:58 21:58 22:18 WBC (5.0-10.0) 10^3/uL RBC (4.2-5.4) 10^6/uL Hgb (12.0-16.0) g/dL Hct (37.0-47.0) % MCV (80-100) fL MCH (27.0-34.0) pg MCHC (33.0-35.0) g/dL Plt Count (150-450) 10^3/uL Neut % (Auto) (42.2-75.2) % Lymph % (Auto) (20.5-50.1) % [place] % (Auto) (2-8) % Eos % (Auto) (1.0-3.0) % Baso % (Auto) (0.0-1.0) % Sodium (135-145) mmol/L Potassium (3.6-5.0) mmol/L Chloride (101-111) mmol/L Carbon Dioxide (21.0-31.0) mmol/L Anion Gap BUN (7-18) mg/dL Creatinine (0.6-1.3) mg/dL Est Cr Clr Drug Dosing mL/min Estimated GFR (MDRD) BUN/Creatinine Ratio Glucose (74-105) mg/dL POC Glucose (70-105) mg/dl Lactic Acid 0.9 (0.5-2.2) mmol/L Calcium (8.4-10.2) mg/dl Total Bilirubin (0.2-1.0) mg/dL AST (10-42) IU/L ALT (10-60) IU/L Alkaline Phosphatase (42-121) IU/L Troponin I (0.00-0.02) ng/ml B-Natriuretic Peptide 187 H (0-100) pg/ml Total Protein (6.7-8.2) g/dl Albumin (3.2-5.5) g/dl Globulin Albumin/Globulin Ratio Urine Color Yellow (YELLOW) Urine Appearance Slightly cloudy (CLEAR) Urine pH 6.0 (5.0-9.0) Ur Specific [place] 1.020 (1.005-1.030) Urine Protein Negative (NEGATIVE) Urine Glucose (UA) Negative (NEGATIVE) Urine Ketones 40 H (NEGATIVE) Urine Occult Blood Trace-intact H (NEGATIVE) Urine Nitrite Negative (NEGATIVE) Urine Bilirubin Negative (NEGATIVE) Urine Urobilinogen 0.2 (0.2-1.0) mg/dL Ur Leukocyte Esterase Small H (NEGATIVE) Urine RBC 0-5 /HPF Urine WBC 5-10 H (0-5/HPF) /HPF Ur Epithelial Cells Moderate H /HPF Urine Bacteria Moderate H (0-FEW/HPF) /HPF Meds: Medications Generic Name Dose Route Start Last Admin Trade Name Zaheer PRN Reason Stop Dose Admin Sodium Chloride 1,000 mls @ 100 mls/hr 08/17/18 22:15 08/17/18 22:06 Normal Saline IV 100 mls/hr ASDIRECTED MOOK Administration Discontinued Medications Generic Name Dose Route Start Last Admin Trade Name Zaheer PRN Reason Stop Dose Admin Albuterol/Ipratropium 3 ml 08/17/18 21:47 08/17/18 21:56 Duoneb 3.0-0.5 Mg/3 Ml NEB 08/17/18 21:48 3 ml ONETIME ONE Administration Methylprednisolone Sodium Succinate 125 mg 08/17/18 21:47 08/17/18 21:56 Solu-Medrol IVPUSH 08/17/18 21:48 125 mg ONETIME ONE Administration - Re-Assessments/Exams Free Text/Narrative Re-Assessment/Exam: 08/17/18 22:[address] Whitley @ who kindly accepted pt. Departure - Departure Time of Disposition: 22:53 Disposition: DC/Tfer to Acute Hospital 02 Condition: Fair Clinical Impression: COPD with acute exacerbation, Elevated troponin, Pulmonary vascular congestion , Hyperglycemia, Hyponatremia Chest pain Qualifiers: Chest pain type: unspecified Qualified Code(s): R07.9 - Chest pain, unspecified - Discharge Information Forms: Interfacility Transfer EMTALA - My Orders Last 24 Hours: My Active Orders 08/17/18 21:47 RT Aerosol Therapy [RC] ASDIRECTED 08/17/18 21:48 Chest 1V Frontal [CR] Urgent 08/17/18 21:49 EKG 12 Lead [EKG Documentation Completion] [RC] STAT 08/17/18 21:58 CULTURE BLOOD [BC] Stat 08/17/18 22:15 Sodium Chloride 0.9% [Normal Saline] 1,000 ml IV ASDIRECTED 08/17/18 22:18 CULTURE URINE [RM] Stat 08/17/18 22:52 Morphine 2 mg IVPUSH ONETIME ONE Ondansetron [Zofran] 4 mg IV ONETIME ONE - Assessment/Plan Last 24 Hours: My Active Orders 08/17/18 21:47 RT Aerosol Therapy [RC] ASDIRECTED 08/17/18 21:48 Chest 1V Frontal [CR] Urgent 08/17/18 21:49 EKG 12 Lead [EKG Documentation Completion] [RC] STAT 08/17/18 21:58 CULTURE BLOOD [BC] Stat 08/17/18 22:15 Sodium Chloride 0.9% [Normal Saline] 1,000 ml IV ASDIRECTED 08/17/18 22:18 CULTURE URINE [RM] Stat 08/17/18 22:52 Morphine 2 mg IVPUSH ONETIME ONE Ondansetron [Zofran] 4 mg IV ONETIME ONE
[2018-08-17 21:58] VITALS: BP 133/67
[2018-08-17] MEDS ORDERED: Sodium Chloride 0.9% 1,000 ML IV SCH (22:15)
[2018-08-17 22:24] LABS: CHLORIDE,CL 90 mmol/L (101-111); SODIUM,NA 132 mmol/L (135-145)
[2018-08-17] MEDS ORDERED: Ondansetron 4 MG/2 ML SDV IV ONE (22:52)
[2018-08-17] MEDS ORDERED: Morphine 2 MG/ML Syringe IVPUSH ONE (22:52)
== END 2018-08-17 23:12 ==
LOC: DL.ED 21:51
DX: J44.9 Chronic obstructive pulmonary disease, unspecified (principal); F31.9 Bipolar disorder, unspecified; E11.65 Type 2 diabetes mellitus with hyperglycemia; J44.1 Chronic obstructive pulmonary disease with (acute) exacerbation; R79.89 Other specified abnormal findings of blood chemistry; R09.89 Other specified symptoms and signs involving the circulatory and respiratory systems; E87.1 Hypo-osmolality and hyponatremia; R07.9 Chest pain, unspecified; Z79.899 Other long term (current) drug therapy
CPT/HCPCS: 36415; 71045; 80053; 81001; 82962; 83605; 83880; 84484; 85025; 87040; 87086; 93005; 94640; 96361; 96374; 96375; 99285; J2270; J2405; J2930; J7030; 87088; 87186; J7620-GY

== ENCOUNTER 2018-11-22 21:15 | Inpatient (IN) | payer MEDICARE, OTHER ==
[2018-11-22] MEDS ORDERED: Acetaminophen 325 MG Tab PO ONE (21:24)
[2018-11-22] MEDS ORDERED: Albuterol/Ipratropium 3.0-0.5 MG/3 ML Neb Soln NEB ONE (21:41)
--- NOTE | 2018-11-22 21:50 | EDM.PDOC ---
ED HPI GENERAL MEDICAL PROBLEM - General Chief Complaint: Respiratory Problem Stated Complaint: PAIN IN CHEST, COUGHING A LOT Time Seen by Provider: 11/22/18 21:44 Source of Information: Reports: Patient History Limitations: Reports: No Limitations - History of Present Illness INITIAL COMMENTS - FREE TEXT/NARRATIVE: Patient with history of COPD, asthma, DM, CINDY, bipolar presenting to the ER with fever, worsening cough, phlegm, and shortness of breath for past 3 days. Patient also reports that she ran out of her prednisone(10mg) 3 days ago. Also has not been using her pulmicort for past 3 days as well. Last neb treatment was 1100. States she also been having left calf pain for past 1 day, denies leg swelling, has hx of DVT. Denies nausea, vomiting, chest pain, palpitation, abd pain, dyuria. On 3L of home O2. Started smoking cigarette again. Chest Pain Score (Numeric/FACES): 6 - Related Data Allergies Allergy/AdvReac Type Severity Reaction Status Date / Time No Known Allergies Allergy Verified 11/22/18 21:32 Home Meds: Home Meds LORazepam 1 tab PO TID 11/03/14 [History] Theophylline [Theophylline Anhydrous] 1 tab PO BID 11/03/14 [History] Zolpidem [Ambien] 1 tab PO BEDTIME 11/03/14 [History] Albuterol/Ipratropium [DuoNeb 3.0-0.5 MG/3 ML] 3 ml INH Q4HR PRN 11/04/14 [ History] Aspirin [Halfprin] 81 mg PO DAILY 11/04/14 [History] Docusate Sodium [Colace] 1 cap PO BID PRN 11/04/14 [History] Montelukast [Singulair] 10 mg PO DAILY 11/04/14 [History] Multivitamin [Multivitamins] 1 tab PO DAILY 11/04/14 [History] Pramipexole Di-HCl [Pramipexole Dihydrochloride] 0.5 mg PO BEDTIME 11/04/14 [ History] QUEtiapine Fumarate [Seroquel] 25 mg PO BEDTIME 11/04/14 [History] Travoprost [Travatan Z 0.004% Ophth Soln] 1 drop EYEBOTH BEDTIME 11/04/14 [ History] atorvaSTATin Calcium [Atorvastatin Calcium] 20 mg PO BEDTIME 11/04/14 [History] metFORMIN HCl [Metformin HCl] 500 mg PO BIDM 11/04/14 [History] Ferrous Sulfate [Iron] 325 mg PO DAILY 11/21/14 [History] Benzonatate [Tessalon Perles] 100 mg PO TID PRN #30 cap 11/27/14 [Rx] Budesonide [Pulmicort] 0.5 mg NEB BIDRT 10/13/15 [History] EPINEPHrine [Epipen] 0.3 mg SUBCUT ASDIRECTED PRN 10/13/15 [History] Tolterodine Tartrate 2 mg PO DAILY 10/13/15 [History] oxyCODONE HCl/Acetaminophen [Percocet 10-325 mg Tablet] 1 tab PO ASDIRECTED [History] guaiFENesin [Robitussin] 100 mg PO Q6H PRN #1 bottle 10/17/15 [Rx] predniSONE [Prednisone] 10 mg PO DAILY #5 tablet 10/17/15 [Rx] Past Medical History HEENT History: Reports: Allergic Rhinitis, Cataract Cardiovascular History: Reports: High Cholesterol Respiratory History: Reports: Asthma, Bronchitis, Recurrent, COPD, SOB Gastrointestinal History: Reports: None Genitourinary History: Reports: Urinary Incontinence Musculoskeletal History: Reports: Osteoporosis Other Musculoskeletal History: Restless Leg Syndrome Neurological History: Reports: Other (See Below) Other Neuro History: degenerative joint disease of the spine, closed fracture of cervical vertebra without neurological injury. Psychiatric History: Reports: Bipolar, Depression Endocrine/Metabolic History: Reports: Diabetes, Type II Hematologic History: Reports: None Immunologic History: Reports: None Oncologic (Cancer) History: Reports: None Dermatologic History: Reports: None - Past Surgical History HEENT Surgical History: Reports: Cataract Surgery, Naso-Sinus Surgery Cardiovascular Surgical History: Reports: AAA Repair Female Surgical History: Reports: Hysterectomy Social & Family History - Family History Family Medical History: Noncontributory Cardiac: Reports: CAD Endocrine/Metabolic: Reports: Diabetes, type II Oncologic: Reports: Lung - Caffeine Use Caffeine Use: Reports: Coffee, Tea - Living Situation & Occupation Living situation: Reports: with Family Occupation: Retired ED ROS GENERAL - Review of Systems Review Of Systems: ROS reveals no pertinent complaints other than HPI. ED EXAM, GENERAL - Physical Exam Exam: See Below Exam Limited By: Respiratory Distress General Appearance: Alert Nose: Normal Inspection, Normal Mucosa, No Blood Throat/Mouth: Normal Inspection, Normal Lips, Normal Teeth, Normal Gums, Normal Oropharynx, Normal Voice, No Airway Compromise Head: Atraumatic, Normocephalic Neck: Normal Inspection, Supple, Non-Tender, Full Range of Motion Respiratory/Chest: Respiratory Distress, Decreased Breath Sounds, Wheezing Cardiovascular: Normal Peripheral Pulses, Tachycardia GI/Abdominal: Normal Bowel Sounds, Soft, Non-Tender, No Organomegaly, No Distention, No Abnormal Bruit, No Mass Extremities: Other (no bilateral lower ext edema, erythema. TTP bilateral calf, ) Neurological: Alert, Oriented, Normal Cognition Psychiatric: Normal Affect Skin Exam: Warm Course - Vital Signs Text/Narrative:: Patient presenting with fever, cough, sob and calf pain. will start workup Last Recorded V/S: Last Vital Signs Temp 104.2 F H 11/22/18 22:13 Pulse 119 H 11/22/18 22:13 Resp 19 11/22/18 22:13 BP 128/80 11/22/18 22:13 Pulse Ox 91 L 11/22/18 22:13 - Orders/Labs/Meds Orders: Active Orders 24 hr Category Date Time Status EKG 12 Lead [EKG Documentation Completion] [RC] ROUTINE Care 11/22/18 22:11 Active RT Aerosol Therapy [RC] ASDIRECTED Care 11/22/18 21:41 Active CXR [Chest 1V Frontal] [CR] Urgent Exams 11/22/18 21:37 Ordered Venous Doppler Lwr Ext Bi [US] Urgent Exams 11/22/18 21:44 Ordered Venous Doppler Lwr Ext Lt [US] Urgent Exams 11/22/18 21:42 Ordered B-TYPE NATRIURETIC PEPTIDE,BNP [CHEM] Stat Lab 11/22/18 21:52 Received COMPREHENSIVE METABOLIC PN,CMP [CHEM] Stat Lab 11/22/18 21:37 Ordered CULTURE BLOOD [BC] Stat Lab 11/22/18 21:40 Ordered CULTURE BLOOD [BC] Stat Lab 11/22/18 21:40 Ordered CULTURE SPUTUM + SMEAR [RM] Stat Lab 11/22/18 21:40 Ordered D-DIMER QUANTITATIVE [COAG] Stat Lab 11/22/18 21:37 Ordered INR,PT,PROTHROMBIN TIME [COAG] Stat Lab 11/22/18 21:43 Ordered LACTIC ACID [CHEM] Stat Lab 11/22/18 21:45 Ordered PTT,PARTIAL THROMBOPLSTIN TIME [COAG] Stat Lab 11/22/18 21:43 Ordered TROPONIN I [CHEM] Stat Lab 11/22/18 21:37 Ordered Blood Culture x2 Reflex Set [OM.PC] Stat Oth 11/22/18 21:37 Ordered Labs: Laboratory Tests 11/22/18 11/22/18 Range/Units 21:52 22:15 WBC 15.8 H (5.0-10.0) 10^3/uL RBC 4.84 (4.2-5.4) 10^6/uL Hgb 14.0 (12.0-16.0) g/dL Hct 44.4 (37.0-47.0) % MCV 91.7 (80-100) fL MCH 28.9 (27.0-34.0) pg MCHC 31.5 L (33.0-35.0) g/dL Plt Count 229 (150-450) 10^3/uL Neut % (Auto) 74.9 (42.2-75.2) % Lymph % (Auto) 17.5 L (20.5-50.1) % [place] % (Auto) 6.1 (2-8) % Eos % (Auto) 1.4 (1.0-3.0) % Baso % (Auto) 0.1 (0.0-1.0) % ABG pH 7.41 (7.35-7.45) ABG pCO2 60 H (35-45) mmHg ABG pO2 62 L (70-100) mmHg ABG HCO3 37.3 H (22-26) mmol/L ABG O2 Saturation 94 L (95-100) % ABG Base Excess 11 H ((-2)-(+3)) mmol/L Nilesh Test Performed O2 Delivery Device Nasal cannula Meds: Medications Discontinued Medications Generic Name Dose Route Start Last Admin Trade Name Freq PRN Reason Stop Dose Admin Acetaminophen 650 mg 11/22/18 21:24 11/22/18 21:42 Tylenol PO 11/22/18 21:25 650 mg NOW ONE Administration Albuterol/Ipratropium 3 ml 11/22/18 21:41 11/22/18 21:44 Duoneb 3.0-0.5 Mg/3 Ml NEB 11/22/18 21:42 3 ml ONETIME ONE Administration Ibuprofen 600 mg 11/22/18 22:23 Motrin PO 11/22/18 22:24 ONETIME ONE Departure - Departure Time of Disposition: 23:04 Disposition: Admitted As Inpatient 67 Condition: Fair Clinical Impression: COPD exacerbation, COPD with acute exacerbation - Discharge Information Forms: ED Department Discharge
[2018-11-22] MEDS ORDERED: Ibuprofen 600 MG Tab PO ONE (22:23)
[2018-11-22 22:24] LABS: CHLORIDE,CL 90 mmol/L (101-111); SODIUM,NA 134 mmol/L (135-145)
[2018-11-22 22:24] LABS: BASE EXCESS ARTERIAL 11 mmol/L ((-2)-(+3)); BICARBONATE,ARTERIAL 37.3 mmol/L (22-26); O2 DELIVERY DEVICE NASAL CANNULA; O2 SATURATION ARTERIAL 94 % (95-100); PCO2 ARTERIAL 60 mmHg (35-45); PO2 ARTERIAL 62 mmHg (70-100)
[2018-11-22 22:25] LABS: ALLEN TEST PERFORMED
[2018-11-22] MEDS ORDERED: Albuterol 0.083% 2.5 MG/3 ML Neb Soln NEB ONE (22:40)
[2018-11-23] MEDS ORDERED: Acetaminophen 325 MG Tab PO PRN (01:15)
[2018-11-23] MEDS ORDERED: Ondansetron 4 MG/2 ML SDV IVPUSH PRN (01:15)
[2018-11-23] MEDS ORDERED: Docusate Sodium 100 MG Cap PO PRN (01:20)
[2018-11-23] MEDS ORDERED: guaiFENesin 100 MG/5 ML Soln 5 ML UD Cup PO PRN (01:20)
[2018-11-23] MEDS: Pramipexole 0.125 MG Tab PO SCH ×2 (01:42→21:41)
[2018-11-23] MEDS: methylPREDNISolone Sodium Succinate 125 MG/2 ML SDV IVPUSH SCH ×2 (01:42→13:50)
[2018-11-23 07:08] LABS: ANION GAP 15.1; CHLORIDE,CL 94 mmol/L (101-111); SODIUM,NA 139 mmol/L (135-145)
[2018-11-23] MEDS: Budesonide 0.5 MG/2 ML Neb Susp NEB SCH (07:31)
[2018-11-23] MEDS: Theophylline 300 MG Tab.ER PO SCH ×2 (08:30→21:42)
[2018-11-23] MEDS: Ferrous Sulfate 325 MG Tab PO SCH (08:30)
[2018-11-23] MEDS: Multivitamins,Therapeutic Tab PO SCH (08:31)
[2018-11-23] MEDS: Enoxaparin 40 MG/0.4 ML Syringe SUBCUT SCH (08:31)
[2018-11-23] MEDS: Tolterodine 2 MG Tab PO SCH (08:31)
[2018-11-23] MEDS: metFORMIN 500 MG Tab PO SCH ×2 (08:31→18:15)
[2018-11-23] MEDS: Aspirin 81 MG Tab.EC PO SCH (08:31)
--- NOTE | 2018-11-23 09:23 | CR ---
Clinical history: 68-year-old female with COPD (exacerbation). Interpretation: Chronic shaggy bronchitic pattern and interstitial nodularity noted on 17 August 2018 and 12 January 2016 exams. Symmetric prominence of proximal pulmonary artery segments unchanged. Normal cardiac silhouette without cephalization of vascular flow or alveolar edema but..... *blunting the posterior costophrenic sulcus suggests small new dependent pleural fluid accumulation. BNP? EKG? No new lung mass, hilar lymphadenopathy or focal lobar pneumonia. No new atelectasis/collapse. No pneumothorax. Old healed right clavicular fracture deformity and age/gender appropriate bone demineralization kyphotic spine. CONCLUSION: Small dependent new pleural effusions (compared to December 2015) suggesting chronic mild CHF. Clinical? No lung mass hilar lymphadenopathy or focal lobar pneumonia.
--- NOTE | 2018-11-23 10:22 | PCM.HP ---
H&P History of Present Illness - General Date of Service: 11/23/18 Admit Problem/Dx: Admission Diagnosis/Problem Admission Diagnosis/Problem COPD, Severe chronic obstructive pulmonary disease - History of Present Illness Initial Comments - Free Text/Narative: Miriam is a 68-year-old woman with both oxygen and steroid dependent COPD, who presents with severe exacerbation. Miriam typically gives herself extra dose of prednisone when she starts to feel an exacerbation coming on. Unfortunately, she has not seen pulmonology since 2016, and did not have any refills left on her prednisone prescription. She therefore ran out of her prednisone 3 days ago. She states for the last 2 days, she has been feeling very short of breath and increasingly unable to ambulate very well. She came into the ER with severe shortness of breath and fever. She also tells me that she has somewhat of a sore throat today as well. Past medical history: 1. Chronic objective pulmonary disease, both oxygen and steroid dependent; sees pulmonology in [place] 2. Obstructive sleep apnea, uses CPAP at night 3. Degenerative joint disease of the cervical spine 4. Chronic pain syndrome secondary to osteoarthritis, sees pain management at [facility] 5. Diabetes mellitus type 2, we do not have a recent A1c on her she gets most of her care at [facility] 6. Osteopenia, last DEXA scan in 2015 7. History of significant mental health issues, including bipolar type II 8. Non-ST elevation NM, 08/2018, thought to be secondary to hypoxia, angiogram did not show any occlusive disease Past surgical history: 1. Surgical repair of abdominal aortic aneurysm 2. Hysterectomy 3. Hammer toe repair 4. Left cataract repair 5. Sinus surgery Chest Pain Score (Numeric/FACES): 0 - Related Data Allergies/Adverse Reactions: Allergies Allergy/AdvReac Type Severity Reaction Status Date / Time No Known Allergies Allergy Verified 11/22/18 23:35 Home Medications: Home Meds LORazepam 1 tab PO TID 11/03/14 [History] Theophylline [Theophylline Anhydrous] 1 tab PO BID 11/03/14 [History] Albuterol/Ipratropium [DuoNeb 3.0-0.5 MG/3 ML] 3 ml INH Q4HR PRN 11/04/14 [ History] Aspirin [Halfprin] 81 mg PO DAILY 11/04/14 [History] Docusate Sodium [Colace] 1 cap PO BID PRN 11/04/14 [History] Montelukast [Singulair] 10 mg PO DAILY 11/04/14 [History] Multivitamin [Multivitamins] 1 tab PO DAILY 11/04/14 [History] Pramipexole Di-HCl [Pramipexole Dihydrochloride] 0.5 mg PO BEDTIME 11/04/14 [ History] QUEtiapine Fumarate [Seroquel] 25 mg PO BEDTIME 11/04/14 [History] Travoprost [Travatan Z 0.004% Ophth Soln] 1 drop EYEBOTH BEDTIME 11/04/14 [ History] atorvaSTATin Calcium [Atorvastatin Calcium] 20 mg PO BEDTIME 11/04/14 [History] metFORMIN HCl [Metformin HCl] 500 mg PO BIDM 11/04/14 [History] Ferrous Sulfate [Iron] 325 mg PO DAILY 11/21/14 [History] Budesonide [Pulmicort] 0.5 mg NEB BIDRT 10/13/15 [History] Tolterodine Tartrate 2 mg PO DAILY 10/13/15 [History] guaiFENesin [Robitussin] 100 mg PO Q6H PRN #1 bottle 10/17/15 [Rx] predniSONE [Prednisone] 10 mg PO DAILY #5 tablet 10/17/15 [Rx] Past Medical History HEENT History: Reports: Allergic Rhinitis, Cataract Cardiovascular History: Reports: High Cholesterol Respiratory History: Reports: Asthma, Bronchitis, Recurrent, COPD, SOB Gastrointestinal History: Reports: None Genitourinary History: Reports: Urinary Incontinence [employer] History: Reports: Musculoskeletal History: Reports: Osteoporosis Other Musculoskeletal History: Restless Leg Syndrome Neurological History: Reports: Other (See Below) Other Neuro History: degenerative joint disease of the spine, closed fracture of cervical vertebra without neurological injury. Psychiatric History: Reports: Bipolar, Depression Endocrine/Metabolic History: Reports: Diabetes, Type II Hematologic History: Reports: None Immunologic History: Reports: None Oncologic (Cancer) History: Reports: None Dermatologic History: Reports: None - Past Surgical History HEENT Surgical History: Reports: Cataract Surgery, Naso-Sinus Surgery Cardiovascular Surgical History: Reports: AAA Repair Female Surgical History: Reports: Hysterectomy Social & Family History - Family History Family Medical History: Noncontributory Cardiac: Reports: CAD Endocrine/Metabolic: Reports: Diabetes, type II Oncologic: Reports: Lung - Tobacco Use Smoking Status *Q: Current Every Day Smoker Years of Tobacco use: 40 Packs/Tins Daily: 1 Second Hand Smoke Exposure: Yes - Caffeine Use Caffeine Use: Reports: None - Recreational Drug Use Recreational Drug Use: No - Living Situation & Occupation Living situation: Reports: with Family Occupation: Retired H&P Review of Systems - Review of Systems: Review Of Systems: See Below Review of Systems Comment:: General: No recent weight gain or weight loss, no fevers or chills HEENT: See history of present illness, no recent headaches, no difficulty with vision or hearing, no difficulty with speaking or swallowing Cardiovascular: See history of present illness, she does not report any chest pain with this shortness of breath Respiratory: See history of present illness GI: No nausea or vomiting, no diarrhea or constipation, no hematochezia or melena Endocrine: No normal rash or bruising, no intolerance to heat or cold : No dysuria or hematuria, no increased urinary frequency Psychological: No increased anxiety or depressive type symptoms Rest of review of systems is completed and negative Exam - Exam Exam: See Below - Vital Signs Vital Signs: Last Vital Signs Temp 35.8 C 11/23/18 08:10 Pulse 76 11/23/18 08:10 Resp 20 11/23/18 08:10 BP 116/59 L 11/23/18 08:10 Pulse Ox 96 11/23/18 08:10 Weight: 78.653 kg - Exam Physical Exam Comments:: General: Miriam is a 68-year-old woman who has mild tachypnea, but is in otherwise no acute distress Oropharynx is clear, mucous membranes are moist Heart: Regular rate and rhythm, 2/6 systolic murmur heard throughout Lungs: Quite distant breath sounds heard throughout, external wheezing throughout, no areas of consolidation heard Extremities: she is moving all of her extremities normal, peripheral pulses are equal Neurological: Cranial nerves II through XII are intact - Patient Data Lab Results Last 24 hrs: Laboratory Results - last 24 hr 11/23/18 11/23/18 Range/Units 06:05 06:05 WBC 19.5 H (5.0-10.0) 10^3/uL RBC 4.86 (4.2-5.4) 10^6/uL Hgb 14.0 (12.0-16.0) g/dL Hct 44.5 (37.0-47.0) % MCV 91.6 (80-100) fL MCH 28.8 (27.0-34.0) pg MCHC 31.5 L (33.0-35.0) g/dL Plt Count 235 (150-450) 10^3/uL Neut % (Auto) 94.4 H (42.2-75.2) % Lymph % (Auto) 3.0 L (20.5-50.1) % [place] % (Auto) 2.3 (2-8) % Eos % (Auto) 0.2 L (1.0-3.0) % Baso % (Auto) 0.1 (0.0-1.0) % PT (9.0-12.0) SEC INR (0.9-1.2) APTT (22.0-34.0) SEC D-Dimer, Quantitative (0-400) ng/mL ABG pH (7.35-7.45) ABG pCO2 (35-45) mmHg ABG pO2 (70-100) mmHg ABG HCO3 (22-26) mmol/L ABG O2 Saturation (95-100) % ABG Base Excess ((-2)-(+3)) mmol/L Nilesh Test O2 Delivery Device Sodium 139 (135-145) mmol/L Potassium 4.1 (3.6-5.0) mmol/L Chloride 94 L (101-111) mmol/L Carbon Dioxide 34.0 H (21.0-31.0) mmol/L Anion Gap 15.1 BUN 10 (7-18) mg/dL Creatinine 0.7 (0.6-1.3) mg/dL Est Cr Clr Drug Dosing 70.18 mL/min Estimated GFR (MDRD) > 60 BUN/Creatinine Ratio 14.28 Glucose 237 H (74-105) mg/dL Lactic Acid (0.5-2.2) mmol/L Calcium 8.4 (8.4-10.2) mg/dl Total Bilirubin 0.4 (0.2-1.0) mg/dL AST 13 (10-42) IU/L ALT 9 L (10-60) IU/L Alkaline Phosphatase 81 (42-121) IU/L Troponin I < 0.02 (0.00-0.02) ng/ml B-Natriuretic Peptide (0-100) pg/ml Total Protein 6.8 (6.7-8.2) g/dl Albumin 3.4 (3.2-5.5) g/dl Globulin 3.4 Albumin/Globulin Ratio 1.00 Urine pH (5.0-9.0) Ur Specific [place] (1.005-1.030) Urine Protein (NEGATIVE) Urine Glucose (UA) (NEGATIVE) Urine Ketones (NEGATIVE) Urine Occult Blood (NEGATIVE) Urine Nitrite (NEGATIVE) Urine Bilirubin (NEGATIVE) Urine Urobilinogen (0.2-1.0) mg/dL Ur Leukocyte Esterase (NEGATIVE) Urine Opiates Screen (NEGATIVE) Ur Oxycodone Screen (NEGATIVE) Urine Methadone Screen (NEGATIVE) Ur Barbiturates Screen (NEGATIVE) U Tricyclic Antidepress (NEGATIVE) Ur Phencyclidine Scrn (NEGATIVE) Ur Amphetamine Screen (NEGATIVE) U Methamphetamines Scrn (NEGATIVE) Urine MDMA Screen (NEGATIVE) U Benzodiazepines Scrn (NEGATIVE) Urine Cocaine Screen (NEGATIVE) U Marijuana (THC) Screen (NEGATIVE) Result Diagrams: 11/23/18 06:05 11/23/18 06:05 Jos Results Last 24 hrs: Microbiology 11/23/18 00:14 Gram Stain - Final Sputum - Expectorated 11/22/18 22:30 Influenza Type A Antigen Screen - Final Nasal, Unspecified NEGATIVE INFLUENZA A VIRUS AG Influenza Type B Antigen Screen - Final NEGATIVE INFLUENZA B VIRUS AG - Problem List (1) COPD exacerbation SNOMED Code(s): 607764853, 144356637 ICD Code: J44.1 - CHRONIC OBSTRUCTIVE PULMONARY DISEASE W (ACUTE) EXACERBATION Status: Acute Priority: High Current Visit: No Onset Date: 11/21/14 (2) Hypercapnia SNOMED Code(s): 69968934 ICD Code: R06.89 - OTHER ABNORMALITIES OF BREATHING Status: Acute Current Visit: No Onset Date: 11/21/14 Problem List Initiated/Reviewed/Updated: Yes Orders Last 24hrs: Active Orders 24 hr Category Date Time Status Patient Status [ADT] Routine ADT 11/23/18 01:15 Active EKG 12 Lead [EKG Documentation Completion] [RC] ROUTINE Care 11/22/18 22:11 Active Oxygen Therapy [RC] PRN Care 11/23/18 01:15 Active RT Aerosol Therapy [RC] ASDIRECTED Care 11/22/18 21:41 Active RT Aerosol Therapy [RC] ASDIRECTED Care 11/22/18 22:40 Active VTE/DVT Education [RC] PER UNIT ROUTINE Care 11/23/18 01:15 Active Vital Signs [RC] Q4H Care 11/23/18 01:15 Active Regular Diet [DIET] Diet 11/23/18 Breakfast Active BLOOD GAS VENOUS [BG] Timed Lab 11/23/18 06:00 Ordered CULTURE BLOOD [BC] Stat Lab 11/22/18 21:52 Received CULTURE BLOOD [BC] Stat Lab 11/22/18 22:05 Received CULTURE SPUTUM + SMEAR [RM] Stat Lab 11/23/18 00:14 Results Acetaminophen [Tylenol] Med 11/23/18 01:15 Active 650 mg PO Q4H PRN Albuterol/Ipratropium [DuoNeb 3.0-0.5 MG/3 ML] Med 11/23/18 01:20 Active 3 ml INH Q4HR PRN Aspirin [Halfprin] Med 11/23/18 09:00 Active 81 mg PO DAILY Budesonide [Pulmicort] Med 11/23/18 07:00 Active 0.5 mg NEB BIDRT Docusate Sodium [Colace] Med 11/23/18 01:20 Active 100 mg PO BID PRN Enoxaparin [Lovenox] Med 11/23/18 09:00 Active 40 mg SUBCUT DAILY Ferrous Sulfate Med 11/23/18 09:00 Active 325 mg PO DAILY Latanoprost [Xalatan 0.005% Ophth Soln] Med 11/23/18 21:00 Active 0 ml EYEBOTH BEDTIME Montelukast [Singulair] Med 11/23/18 21:00 Active 10 mg PO BEDTIME Multivitamins,Therapeutic [Thera] Med 11/23/18 09:00 Active 1 each PO DAILY Ondansetron [Zofran] Med 11/23/18 01:15 Active 4 mg IVPUSH Q6H PRN Pramipexole [Mirapex] Med 11/23/18 01:45 Active 0.5 mg PO BEDTIME QUEtiapine [SEROquel] Med 11/23/18 21:00 Active 25 mg PO BEDTIME Theophylline [Theophylline Anhydrous] Med 11/23/18 09:00 Active 300 mg PO BID Tolterodine [Detrol] Med 11/23/18 09:00 Active 2 mg PO DAILY atorvaSTATin [Lipitor] Med 11/23/18 21:00 Active 20 mg PO BEDTIME guaiFENesin [Robitussin] Med 11/23/18 01:20 Active 100 mg PO Q6H PRN metFORMIN [Glucophage] Med 11/23/18 08:00 Active 500 mg PO BIDM methylPREDNISolone Sod Succ [Solu-MEDROL] Med 11/23/18 02:00 Active 125 mg IVPUSH Q12H oxyCODONE Med 11/23/18 01:15 Active 10 mg PO Q4H PRN Blood Culture x2 Reflex Set [OM.PC] Stat Oth 11/22/18 21:37 Ordered Resuscitation Status Routine Resus Stat 11/23/18 01:15 Ordered Medication Orders Acetaminophen (Tylenol) 650 mg PO Q4H PRN PRN Reason: Pain (Mild 1-3)/fever Albuterol/Ipratropium (Duoneb 3.0-0.5 Mg/3 Ml) 3 ml INH Q4HR PRN PRN Reason: Shortness of Breath Aspirin (Halfprin) 81 mg PO DAILY [facility] Last Admin: 11/23/18 08:31 Dose: 81 mg Atorvastatin Calcium (Lipitor) 20 mg PO BEDTIME [facility] Budesonide (Pulmicort) 0.5 mg NEB BIDRT [facility] Last Admin: 11/23/18 07:31 Dose: 0.5 mg Docusate Sodium (Colace) 100 mg PO BID PRN PRN Reason: Constipation Enoxaparin Sodium (Lovenox) 40 mg SUBCUT DAILY [facility] Last Admin: 11/23/18 08:31 Dose: 40 mg Ferrous Sulfate (Ferrous Sulfate) 325 mg PO DAILY [facility] Last Admin: 11/23/18 08:30 Dose: 325 mg Guaifenesin (Robitussin) 100 mg PO Q6H PRN PRN Reason: Cough Latanoprost (Xalatan 0.005% Ophth Soln) 0 ml EYEBOTH BEDTIME [facility] Metformin HCl (Glucophage) 500 mg PO BIDM [facility] Last Admin: 11/23/18 08:31 Dose: 500 mg Methylprednisolone Sodium Succinate (Solu-Medrol) 125 mg IVPUSH Q12H [facility] Stop: 11/23/18 14:01 Last Admin: 11/23/18 01:42 Dose: 125 mg Montelukast Sodium (Singulair) 10 mg PO BEDTIME [facility] Multivitamins (Thera) 1 each PO DAILY [facility] Last Admin: 11/23/18 08:31 Dose: 1 each Ondansetron HCl (Zofran) 4 mg IVPUSH Q6H PRN PRN Reason: Nausea/Vomiting Oxycodone HCl (Oxycodone) 10 mg PO Q4H PRN PRN Reason: Pain (moderate 4-6) Pramipexole Dihydrochloride (Mirapex) 0.5 mg PO BEDTIME [facility] Last Admin: 11/23/18 01:42 Dose: 0.5 mg Quetiapine Fumarate (Seroquel) 25 mg PO BEDTIME [facility] Theophylline (Theophylline Anhydrous) 300 mg PO BID [facility] Last Admin: 11/23/18 08:30 Dose: 300 mg Tolterodine Tartrate (Detrol) 2 mg PO DAILY [facility] Last Admin: 11/23/18 08:31 Dose: 2 mg Assessment/Plan Comment:: Assessment: 1. Severe chronic obstructive pulmonary disease, both steroid and oxygen dependent, with acute exacerbation 2. Acute on chronic hypercapnia secondary to #1 3. Mild respiratory distress secondary to #1 4. Diabetes mellitus type 2 5. History of NSTEMI secondary to hypoxia 6. Chronic pain syndrome secondary to multiple issues, including degeneration of the cervical spine Plan: 1. Admit to inpatient 2. IV Solu-Medrol, 125 mg IV every 12 hours 2 doses 3. Doxycycline, 100 mg by mouth twice a day 4. Continue home medications 5. Recheck laboratory work and chest x-ray in a.m.
[2018-11-23] MEDS ORDERED: Sodium Chloride 0.9% 10 ML Syringe FLUSH PRN (11:04)
[2018-11-23] MEDS: Albuterol/Ipratropium 3.0-0.5 MG/3 ML Neb Soln INH PRN ×2 (12:53→19:23)
[2018-11-23] MEDS: oxyCODONE 5 MG Tab PO PRN ×2 (15:53→21:42)
[2018-11-23] MEDS ORDERED: QUEtiapine 25 MG Tab PO SCH (21:00)
[2018-11-23] MEDS ORDERED: Montelukast 10 MG Tab PO SCH (21:00)
[2018-11-23] MEDS ORDERED: atorvaSTATin 20 MG Tab PO SCH (21:00)
[2018-11-23] MEDS ORDERED: Insulin Glarg,Human.Rec.Analog 100 UNIT/ML ML SUBCUT SCH (21:00)
[2018-11-23] MEDS ORDERED: Latanoprost 0.005% Ophth Soln 2.5 ML Bottle EYEBOTH SCH (21:00)
[2018-11-24] MEDS: Budesonide 0.5 MG/2 ML Neb Susp NEB SCH ×2 (00:53→07:35)
[2018-11-24] MEDS: oxyCODONE 5 MG Tab PO PRN (03:23)
[2018-11-24] MEDS ORDERED: Non-Formulary Medication 1 Each (Saxagliptin Hcl [Onglyza] 5 MG) PO SCH (09:00)
[2018-11-24] MEDS ORDERED: Non-Formulary Medication 1 Each (Umeclidinium Bromide [Incruse Ellipta*] 1 PUFF) IH SCH (09:00)
[2018-11-24] MEDS: Multivitamins,Therapeutic Tab PO SCH (09:04)
[2018-11-24] MEDS: Theophylline 300 MG Tab.ER PO SCH (09:04)
[2018-11-24] MEDS: Ferrous Sulfate 325 MG Tab PO SCH (09:04)
[2018-11-24] MEDS: Aspirin 81 MG Tab.EC PO SCH (09:05)
[2018-11-24] MEDS: metFORMIN 500 MG Tab PO SCH (09:05)
[2018-11-24] MEDS: Enoxaparin 40 MG/0.4 ML Syringe SUBCUT SCH (09:09)
[2018-11-24] MEDS ORDERED: Pneumococcal Polyvalent-23 Vaccine 0.5 ML SDV IM ONE (11:00)
[2018-11-24] MEDS ORDERED: Albuterol/Ipratropium 3.0-0.5 MG/3 ML Neb Soln INH PRN (11:00)
[2018-11-24] MEDS ORDERED: oxyCODONE 5 MG Tab PO PRN (11:00)
[2018-11-24] MEDS: Tolterodine 2 MG Tab PO SCH (11:22)
[2018-11-24 11:23] VITALS: BP 114/65
--- NOTE | 2018-11-25 07:29 | DISCH ---
HISTORY OF PRESENT ILLNESS: Miriam is a 68-year-old woman who presented to the ED very late in the evening on the with severe shortness of breath and weakness. Miriam has severe oxygen and steroid dependent COPD and has had multiple exacerbations in the recent past. 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 She also notes that she normally has enough prednisone at home to give herself a bolus oral dosing, but unfortunately ran out and has not had any prednisone for the last 3 days. She also reports significant fevers and chills, she was noted to have a temperature of 104 degrees Fahrenheit when presenting to the ED. HOSPITAL COURSE: Miriam was admitted to inpatient and placed on IV antibiotics as well as methylprednisolone. She was given oral Tylenol for the fever. By the morning of hospital day #1, she had had no further fevers and was feeling quite a bit better. Her oxygen demands had dropped significantly and she was saturating between 94% and 98% on 3 L of oxygen, which is her baseline at home. By the morning of hospital day #2, she had received several doses of IV antibiotic as well as several doses of IV methylprednisolone and was completely back to her baseline as far as her respiratory status as well as her ability to perform ADLs. She was deemed suitable for discharge home. DISCHARGE DIAGNOSES: 1. Severe oxygen and steroid dependent chronic obstructive pulmonary disease with acute exacerbation. 2. Current history of diabetes mellitus type 2. 3. Chronic pain syndrome secondary to severe cervical disk degeneration. 4. History of recurrent hypercapnia and hypoxia secondary to chronic obstructive pulmonary disease exacerbations. DISCHARGE PHYSICAL EXAMINATION: GENERAL: Miriam is a pleasant 68-year-old woman, in no acute distress. She is alert and oriented x3. HEENT: Oropharynx is clear, mucous membranes are moist. Heart: Regular rate and rhythm, there is a 2/6 systolic murmur heard throughout. Lungs: Much improved lung sounds throughout, she still has some mild expiratory wheezing, but I believe that is stable. DISCHARGE PLAN: 1. She was discharged home today. 2. We will place her on a 10-day prednisone taper, getting back to her 10 mg daily baseline. 3. I will place her on 7 days of doxycycline b.i.d. 4. We will have her close followup with Dr. Jerez, whom she has already been scheduled to see in Pulmonology through [facility] in [place]. [facility] /[phone]
== END 2018-11-24 13:00 | disposition home or self-care (01) | DRG 192 ==
LOC: DL.ED 21:15 → DL.MS 23:15 → UNDOADMIN 23:15 → DL.MS 11-23 01:15
PROVIDERS: ADMIT Family Medicine; ATTEND Family Medicine
DX: J44.1 Chronic obstructive pulmonary disease with (acute) exacerbation (principal); R05 Cough; G89.4 Chronic pain syndrome; R07.9 Chest pain, unspecified; M47.9 Spondylosis, unspecified; M19.91 Primary osteoarthritis, unspecified site; G47.33 Obstructive sleep apnea (adult) (pediatric); J30.9 Allergic rhinitis, unspecified; M81.0 Age-related osteoporosis without current pathological fracture; F32.9 Major depressive disorder, single episode, unspecified; E11.9 Type 2 diabetes mellitus without complications; F31.9 Bipolar disorder, unspecified; R50.9 Fever, unspecified; R06.02 Shortness of breath; T38.0X6A Underdosing of glucocorticoids and synthetic analogues, initial encounter; I25.2 Old myocardial infarction; Z99.81 Dependence on supplemental oxygen; Z98.49 Cataract extraction status, unspecified eye; Z23 Encounter for immunization; T48.6X6A Underdosing of antiasthmatics, initial encounter; M79.662 Pain in left lower leg; Z86.718 Personal history of other venous thrombosis and embolism; F17.210 Nicotine dependence, cigarettes, uncomplicated; Z79.84 Long term (current) use of oral hypoglycemic drugs; Z79.82 Long term (current) use of aspirin; Z79.52 Long term (current) use of systemic steroids; Z79.899 Other long term (current) drug therapy; E78.00 Pure hypercholesterolemia, unspecified; R32 Unspecified urinary incontinence; G25.81 Restless legs syndrome; Z90.710 Acquired absence of both cervix and uterus; R06.03 Acute respiratory distress; R06.2 Wheezing; R00.0 Tachycardia, unspecified
CPT/HCPCS: 36415; 36600; 71045; 80053; 80305; 81003; 82803; 83605; 83880; 84484; 85025; 85379; 85610; 85730; 87040 ×2; 87070; 87077 ×2; 87186; 87205; 87804 ×2; 93005; 93970; 94640; 99284; A9270 ×2; J0696; J7050; 71046; 82962; 90732; J1650; J1815-GY; J2930; J7613-GY; J7620-GY

== ENCOUNTER 2018-11-29 13:38 | Observation (INO) | payer MEDICARE, OTHER ==
--- NOTE | 2018-11-29 13:38 | EDM.PDOC ---
<Kay Padron - Last Filed: 11/29/18 15:33> ED HPI GENERAL MEDICAL PROBLEM - General Chief Complaint: Chest Pain Stated Complaint: AMBULANCE Time Seen by Provider: 11/29/18 13:37 Source of Information: Reports: Patient, EMS, Old Records, RN, RN Notes Reviewed History Limitations: Reports: Altered Mental Status - History of Present Illness INITIAL COMMENTS - FREE TEXT/NARRATIVE: Patient is a 68 year old female with significant history of COPD, T2DM, and Bipolar disorder presenting via ambulance for chest pain. She is confused and disoriented upon arrival. She is complaining of chest pain and difficulty breathing. She states this is similar to her symptoms with her previous hospital admission on 11/23/2018. She is complaining of associated nausea. She also produces thick white/green sputum. On review of previous records from 11/23/18 she had a sputum culture with growth of Haemophilus influenza and pseudomonas. She was treated with Doxycycline. Patient's friend arrived and provided more information. He states that for the past 3 days she has been awake at night and will only sleep during the day. He states that she began complaining of sever abdominal pain and vomiting around noon today. At that time she seemed to be more confused and restless than normal also. He is unsure of any other changes. Onset: Today - Related Data Allergies Allergy/AdvReac Type Severity Reaction Status Date / Time No Known Allergies Allergy Verified 11/29/18 13:43 Home Meds: Home Meds LORazepam 1 mg PO TID PRN 11/03/14 [History] Theophylline [Theophylline Anhydrous] 300 mg PO BID 11/03/14 [History] Aspirin [Halfprin] 81 mg PO DAILY 11/04/14 [History] Docusate Sodium [Colace] 1 cap PO BID PRN 11/04/14 [History] Multivitamin [Multivitamins] 1 tab PO DAILY 11/04/14 [History] Travoprost [Travatan Z 0.004% Ophth Soln] 1 drop EYEBOTH BEDTIME 11/04/14 [ History] atorvaSTATin Calcium [Atorvastatin Calcium] 20 mg PO BEDTIME 11/04/14 [History] metFORMIN HCl [Metformin HCl] 500 mg PO BIDM 11/04/14 [History] Ferrous Sulfate [Iron] 325 mg PO DAILY 11/21/14 [History] Budesonide [Pulmicort] 1 mg NEB BIDRT 10/13/15 [History] guaiFENesin [Robitussin] 100 mg PO Q6H PRN #1 bottle 10/17/15 [Rx] predniSONE [Prednisone] 10 mg PO DAILY #5 tablet 10/17/15 [Rx] Albuterol [Proventil HFA] 2 puff INH Q4H PRN 11/23/18 [History] Benzonatate 100 mg PO TID PRN 11/23/18 [History] Formoterol Fumarate [Perforomist] 20 mcg NEB BID 11/23/18 [History] Gabapentin [Neurontin] 300 mg PO TID 11/23/18 [History] Insulin Detemir [Levemir Flextouch] 20 units SUBCUT BEDTIME 11/23/18 [History] Latanoprost/Pf [Latanoprost 0.005% Eye Drop] 1 drop EYEBOTH BEDTIME 11/23/18 [ History] Lidocaine 5% [Lidoderm 5%] 1 patch TOP DAILY PRN 11/23/18 [History] Pantoprazole Sodium 40 mg PO DAILY 11/23/18 [History] QUEtiapine Fumarate [Quetiapine Fumarate] 75 mg PO BEDTIME 11/23/18 [History] Saxagliptin HCl [Onglyza] 5 mg PO DAILY 11/23/18 [History] Tolterodine Tartrate [Tolterodine Tartrate ER] 4 mg PO DAILY 11/23/18 [History] Umeclidinium [place] [Incruse Ellipta*] 1 puff IH DAILY 11/23/18 [History] Zolpidem [Ambien] 5 mg PO BEDTIME PRN 11/23/18 [History] oxyCODONE HCl/Acetaminophen [Endocet 10-325 mg Tablet] 1 each PO Q4HR PRN [History] Doxycycline [Vibramycin] 100 mg PO BID #20 cap 11/24/18 [Rx] Past Medical History HEENT History: Reports: Allergic Rhinitis, Cataract Cardiovascular History: Reports: High Cholesterol Respiratory History: Reports: Asthma, Bronchitis, Recurrent, COPD, SOB Gastrointestinal History: Reports: None Genitourinary History: Reports: Urinary Incontinence 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 Psychiatric History: Reports: Bipolar, Depression Endocrine/Metabolic History: Reports: Diabetes, Type II Hematologic History: Reports: None Immunologic History: Reports: None Oncologic (Cancer) History: Reports: None Dermatologic History: Reports: None - Past Surgical History HEENT Surgical History: Reports: Cataract Surgery, Naso-Sinus Surgery Cardiovascular Surgical History: Reports: AAA Repair Female Surgical History: Reports: Hysterectomy Social & Family History - Family History Family Medical History: Noncontributory Cardiac: Reports: CAD Endocrine/Metabolic: Reports: Diabetes, type II Oncologic: Reports: Lung - Caffeine Use Caffeine Use: Reports: None - Living Situation & Occupation Living situation: Reports: with Family Occupation: Retired ED ROS GENERAL - Review of Systems Review Of Systems: ROS reveals no pertinent complaints other than HPI. ED EXAM, GENERAL - Physical Exam Exam: See Below Exam Limited By: Altered Mental Status (Intact to person only) General Appearance: Anxious, Other (restless) Eye Exam: Bilateral Eye: Normal Inspection Ears: Normal External Exam Nose: Normal Inspection, Normal Mucosa Throat/Mouth: Normal Inspection, Normal Oropharynx Head: Atraumatic, Normocephalic Neck: Normal Inspection, Supple Respiratory/Chest: Respiratory Distress, Decreased Breath Sounds, Wheezing Cardiovascular: Tachycardia Peripheral Pulses: 3+: Posterior Tibial (L), Posterior Tibial (R), Dorsalis Pedis (L), Dorsalis Pedis (R) GI/Abdominal: Soft, Non-Tender Back Exam: Normal Inspection Extremities: Normal Inspection, No Pedal Edema Neurological: Confused, Disoriented, Other (intact to person only) Psychiatric: Anxious Skin Exam: Warm EKG INTERPRETATION EKG Date: 11/29/18 Time: 13:46 Rhythm: Other (Sinus Tach) Rate (Beats/Min): 135 [place]: LAD-Left Franklin Deviation P-Wave: Present QRS: Other (inferior Q waves, old) ST-T: Normal QT: Normal Comparison: No Change (Compared to 2014 and 10/2018) Course - Vital Signs Last Recorded V/S: Last Vital Signs Temp 38.6 C H 11/29/18 13:43 Pulse 139 H 11/29/18 13:43 Resp 26 H 11/29/18 13:43 BP 129/75 11/29/18 13:43 Pulse Ox 95 11/29/18 13:43 - Orders/Labs/Meds Orders: Active Orders 24 hr Category Date Time Status EKG 12 Lead [EKG Documentation Completion] [RC] STAT Care 11/29/18 13:34 Active RT Aerosol Therapy [RC] ASDIRECTED Care 11/29/18 13:41 Active RT Aerosol Therapy [RC] ASDIRECTED Care 11/29/18 15:24 Active CULTURE BLOOD [BC] Stat Lab 11/29/18 13:59 Received CULTURE BLOOD [BC] Stat Lab 11/29/18 14:20 Received Levofloxacin/Dextrose 5%-Water [Levaquin in D5W 750 MG/ Med 11/29/18 14:19 Active 150 ML] 750 mg Premix Bag 1 bag IV ONETIME Blood Culture x2 Reflex Set [OM.PC] Stat Oth 11/29/18 13:43 Ordered Medication Orders Levofloxacin/Dextrose 750 mg/ (Premix) 150 mls @ 100 mls/hr IV ONETIME ONE Stop: 11/29/18 15:48 Last Admin: 11/29/18 14:23 Dose: 100 mls/hr Labs: Laboratory Tests 11/29/18 11/29/18 11/29/18 Range/Units 12:39 13:59 13:59 WBC 11.1 H (5.0-10.0) 10^3/uL RBC 5.44 H (4.2-5.4) 10^6/uL Hgb 15.7 D (12.0-16.0) g/dL Hct 48.5 H (37.0-47.0) % MCV 89.2 (80-100) fL MCH 28.9 (27.0-34.0) pg MCHC 32.4 L (33.0-35.0) g/dL Plt Count 238 (150-450) 10^3/uL Neut % (Auto) 86.2 H (42.2-75.2) % Lymph % (Auto) 8.6 L (20.5-50.1) % Dale % (Auto) 4.8 (2-8) % Eos % (Auto) 0.4 L (1.0-3.0) % Baso % (Auto) 0.0 (0.0-1.0) % Add Manual Diff Yes Neutrophils % (Manual) 80 H (42-75) % Band Neutrophils % 6 % Lymphocytes % (Manual) 12 L (20-50) % Monocytes % (Manual) 1 L (2-8) % Eosinophils % (Manual) 1 (1-3) % Toxic Granulation 1+ slight Sodium 138 (135-145) mmol/L Potassium 4.2 (3.6-5.0) mmol/L Chloride 98 L (101-111) mmol/L Carbon Dioxide 27.0 (21.0-31.0) mmol/L Anion Gap 17.2 BUN 20 H (7-18) mg/dL Creatinine 0.6 (0.6-1.3) mg/dL Est Cr Clr Drug Dosing 88.48 mL/min Estimated GFR (MDRD) > 60 BUN/Creatinine Ratio 33.33 Glucose 172 H (74-105) mg/dL Lactic Acid (0.5-2.2) mmol/L Calcium 8.2 L (8.4-10.2) mg/dl Total Bilirubin 0.6 (0.2-1.0) mg/dL AST 17 (10-42) IU/L ALT 15 (10-60) IU/L Alkaline Phosphatase 80 (42-121) IU/L Troponin I < 0.02 (0.00-0.02) ng/ml B-Natriuretic Peptide 17 (0-100) pg/ml Total Protein 6.5 L (6.7-8.2) g/dl Albumin 3.4 (3.2-5.5) g/dl Globulin 3.1 Albumin/Globulin Ratio 1.10 Amylase 21 L (28-100) U/L Lipase 21 L (22-51) U/L Urine Color (YELLOW) Urine Appearance (CLEAR) Urine pH (5.0-9.0) Ur Specific [place] (1.005-1.030) Urine Protein (NEGATIVE) Urine Glucose (UA) (NEGATIVE) Urine Ketones (NEGATIVE) Urine Occult Blood (NEGATIVE) Urine Nitrite (NEGATIVE) Urine Bilirubin (NEGATIVE) Urine Urobilinogen (0.2-1.0) mg/dL Ur Leukocyte Esterase (NEGATIVE) Urine RBC /HPF Urine WBC (0-5/HPF) /HPF Ur Epithelial Cells /HPF Urine Bacteria (0-FEW/HPF) /HPF Fine Granular Casts (0/LPF) /LPF Urine Mucus /LPF 11/29/18 11/29/18 Range/Units 13:59 14:36 WBC (5.0-10.0) 10^3/uL RBC (4.2-5.4) 10^6/uL Hgb (12.0-16.0) g/dL Hct (37.0-47.0) % MCV (80-100) fL MCH (27.0-34.0) pg MCHC (33.0-35.0) g/dL Plt Count (150-450) 10^3/uL Neut % (Auto) (42.2-75.2) % Lymph % (Auto) (20.5-50.1) % Dale % (Auto) (2-8) % Eos % (Auto) (1.0-3.0) % Baso % (Auto) (0.0-1.0) % Add Manual Diff Neutrophils % (Manual) (42-75) % Band Neutrophils % % Lymphocytes % (Manual) (20-50) % Monocytes % (Manual) (2-8) % Eosinophils % (Manual) (1-3) % Toxic Granulation Sodium (135-145) mmol/L Potassium (3.6-5.0) mmol/L Chloride (101-111) mmol/L Carbon Dioxide (21.0-31.0) mmol/L Anion Gap BUN (7-18) mg/dL Creatinine (0.6-1.3) mg/dL Est Cr Clr Drug Dosing mL/min Estimated GFR (MDRD) BUN/Creatinine Ratio Glucose (74-105) mg/dL Lactic Acid 1.6 (0.5-2.2) mmol/L Calcium (8.4-10.2) mg/dl Total Bilirubin (0.2-1.0) mg/dL AST (10-42) IU/L ALT (10-60) IU/L Alkaline Phosphatase (42-121) IU/L Troponin I (0.00-0.02) ng/ml B-Natriuretic Peptide (0-100) pg/ml Total Protein (6.7-8.2) g/dl Albumin (3.2-5.5) g/dl Globulin Albumin/Globulin Ratio Amylase (28-100) U/L Lipase (22-51) U/L Urine Color Yellow (YELLOW) Urine Appearance Clear (CLEAR) Urine pH 7.0 (5.0-9.0) Ur Specific [place] 1.020 (1.005-1.030) Urine Protein Trace H (NEGATIVE) Urine Glucose (UA) Negative (NEGATIVE) Urine Ketones Negative (NEGATIVE) Urine Occult Blood Negative (NEGATIVE) Urine Nitrite Negative (NEGATIVE) Urine Bilirubin Negative (NEGATIVE) Urine Urobilinogen 0.2 (0.2-1.0) mg/dL Ur Leukocyte Esterase Negative (NEGATIVE) Urine RBC 0-5 /HPF Urine WBC 0-5 (0-5/HPF) /HPF Ur Epithelial Cells Rare /HPF Urine Bacteria Few (0-FEW/HPF) /HPF Fine Granular Casts Few H (0/LPF) /LPF Urine Mucus Moderate H /LPF Meds: Medications Generic Name Dose Route Start Last Admin Trade Name Freq PRN Reason Stop Dose Admin Levofloxacin/Dextrose 750 mg/ 150 mls @ 100 mls/hr 11/29/18 14:19 11/29/18 14 :23 Premix IV 11/29/18 15:48 100 mls/hr ONETIME ONE Administration Discontinued Medications Generic Name Dose Route Start Last Admin Trade Name Freq PRN Reason Stop Dose Admin Acetaminophen 975 mg 11/29/18 14:11 11/29/18 14:20 Tylenol PO 11/29/18 14:12 975 mg NOW ONE Administration Albuterol/Ipratropium 3 ml 11/29/18 13:41 11/29/18 14:05 Duoneb 3.0-0.5 Mg/3 Ml NEB 11/29/18 13:42 3 ml ONETIME ONE Administration Albuterol/Ipratropium 3 ml 11/29/18 15:24 Duoneb 3.0-0.5 Mg/3 Ml BANNER 11/29/18 15:25 ONETIME ONE Aspirin 324 mg 11/29/18 13:41 11/29/18 14:05 Aspirin PO 11/29/18 13:42 324 mg ONETIME ONE Administration Methylprednisolone Sodium 101 mls @ 100 mls/hr 11/29/18 13:40 11/29/18 14:05 Succinate 125 mg/ Sodium IV 11/29/18 14:44 Not Given Chloride ONETIME ONE Sodium Chloride 1,000 mls @ 999 mls/hr 11/29/18 14:12 11/29/18 14:20 Normal Saline IV 11/29/18 15:12 999 mls/hr .BOLUS ONE Administration Methylprednisolone Sodium Succinate 125 mg 11/29/18 13:47 11/29/18 14:05 Solu-Medrol IVPUSH 11/29/18 13:48 125 mg ONETIME ONE Administration Ondansetron HCl 4 mg 11/29/18 14:12 11/29/18 14:20 Zofran IV 11/29/18 14:13 4 mg ONETIME ONE Administration - Radiology Interpretation Free Text/Narrative:: Chest X-ray, 1 view: IMPRESSION: Bronchial inflammation/edema. Departure - Departure Time of Disposition: 15:28 Disposition: Admitted As Inpatient 67 Condition: Fair Clinical Impression: COPD exacerbation, Delirium Pneumonia Qualifiers: Pneumonia type: aspiration pneumonia Aspiration pneumonia type: due to vomit Laterality: unspecified laterality Lung location: unspecified part of lung Qualified Code(s): J69.0 - Pneumonitis due to inhalation of food and vomit Forms: ED Department Discharge Care Plan Goals: 1. Admit to Inpatient Med-Surg floor. Dr. Dafne oclvin. - Problem List Review Problem List Initiated/Reviewed/Updated: Yes - My Orders Last 24 Hours: My Active Orders 11/29/18 14:19 Levofloxacin/Dextrose 5%-Water [Levaquin in D5W 750 MG/150 ML] 750 mg Premix Bag 1 bag IV ONETIME 11/29/18 15:24 RT Aerosol Therapy [RC] ASDIRECTED - Assessment/Plan Last 24 Hours: My Active Orders 11/29/18 14:19 Levofloxacin/Dextrose 5%-Water [Levaquin in D5W 750 MG/150 ML] 750 mg Premix Bag 1 bag IV ONETIME 11/29/18 15:24 RT Aerosol Therapy [RC] ASDIRECTED Assessment:: Patient is a 68 year old female presenting with chest pain and shortness of breath with significant history of COPD, T2DM, and Bipolar disorder. She is disoriented and short of breath. Plan: 1. CBC, CMP, Lactic acid, Blood cultures x2, troponin I, BNP, Urinalysis, and Influenza A&B antigen swab. 2. Oxygen supplementation via Nasal canula 3. Chest X-ray, EKG 4. DuoNeb treatment and Solu-Medrol treatment given. <Trent Myers - Last Filed: 11/29/18 15:35> ED HPI GENERAL MEDICAL PROBLEM - General Source of Information: Reports: EMS, Old Records, RN, RN Notes Reviewed - History of Present Illness Duration: Chronic, Getting Worse Location: Reports: Chest Chest Pain Score (Numeric/FACES): 4 Social & Family History - Family History Family Medical History: Noncontributory - Tobacco Use Smoking Status *Q: Current Every Day Smoker Tobacco Use Within Last Twelve Months: Cigarettes Packs/Tins Daily: 1 ED ROS GENERAL - Review of Systems Review Of Systems: ROS reveals no pertinent complaints other than HPI. Course - Vital Signs Last Recorded V/S: Last Vital Signs Temp 38.6 C H 11/29/18 13:43 Pulse 139 H 11/29/18 13:43 Resp 26 H 11/29/18 13:43 BP 129/75 11/29/18 13:43 Pulse Ox 95 11/29/18 13:43 - Orders/Labs/Meds Labs: Laboratory Tests 11/29/18 11/29/18 11/29/18 Range/Units 12:39 13:59 13:59 WBC 11.1 H (5.0-10.0) 10^3/uL RBC 5.44 H (4.2-5.4) 10^6/uL Hgb 15.7 D (12.0-16.0) g/dL Hct 48.5 H (37.0-47.0) % MCV 89.2 (80-100) fL MCH 28.9 (27.0-34.0) pg MCHC 32.4 L (33.0-35.0) g/dL Plt Count 238 (150-450) 10^3/uL Neut % (Auto) 86.2 H (42.2-75.2) % Lymph % (Auto) 8.6 L (20.5-50.1) % Dale % (Auto) 4.8 (2-8) % Eos % (Auto) 0.4 L (1.0-3.0) % Baso % (Auto) 0.0 (0.0-1.0) % Add Manual Diff Yes Neutrophils % (Manual) 80 H (42-75) % Band Neutrophils % 6 % Lymphocytes % (Manual) 12 L (20-50) % Monocytes % (Manual) 1 L (2-8) % Eosinophils % (Manual) 1 (1-3) % Toxic Granulation 1+ slight Sodium 138 (135-145) mmol/L Potassium 4.2 (3.6-5.0) mmol/L Chloride 98 L (101-111) mmol/L Carbon Dioxide 27.0 (21.0-31.0) mmol/L Anion Gap 17.2 BUN 20 H (7-18) mg/dL Creatinine 0.6 (0.6-1.3) mg/dL Est Cr Clr Drug Dosing 88.48 mL/min Estimated GFR (MDRD) > 60 BUN/Creatinine Ratio 33.33 Glucose 172 H (74-105) mg/dL Lactic Acid (0.5-2.2) mmol/L Calcium 8.2 L (8.4-10.2) mg/dl Total Bilirubin 0.6 (0.2-1.0) mg/dL AST 17 (10-42) IU/L ALT 15 (10-60) IU/L Alkaline Phosphatase 80 (42-121) IU/L Troponin I < 0.02 (0.00-0.02) ng/ml B-Natriuretic Peptide 17 (0-100) pg/ml Total Protein 6.5 L (6.7-8.2) g/dl Albumin 3.4 (3.2-5.5) g/dl Globulin 3.1 Albumin/Globulin Ratio 1.10 Amylase 21 L (28-100) U/L Lipase 21 L (22-51) U/L Urine Color (YELLOW) Urine Appearance (CLEAR) Urine pH (5.0-9.0) Ur Specific [place] (1.005-1.030) Urine Protein (NEGATIVE) Urine Glucose (UA) (NEGATIVE) Urine Ketones (NEGATIVE) Urine Occult Blood (NEGATIVE) Urine Nitrite (NEGATIVE) Urine Bilirubin (NEGATIVE) Urine Urobilinogen (0.2-1.0) mg/dL Ur Leukocyte Esterase (NEGATIVE) Urine RBC /HPF Urine WBC (0-5/HPF) /HPF Ur Epithelial Cells /HPF Urine Bacteria (0-FEW/HPF) /HPF Fine Granular Casts (0/LPF) /LPF Urine Mucus /LPF 11/29/18 11/29/18 Range/Units 13:59 14:36 WBC (5.0-10.0) 10^3/uL RBC (4.2-5.4) 10^6/uL Hgb (12.0-16.0) g/dL Hct (37.0-47.0) % MCV (80-100) fL MCH (27.0-34.0) pg MCHC (33.0-35.0) g/dL Plt Count (150-450) 10^3/uL Neut % (Auto) (42.2-75.2) % Lymph % (Auto) (20.5-50.1) % Dale % (Auto) (2-8) % Eos % (Auto) (1.0-3.0) % Baso % (Auto) (0.0-1.0) % Add Manual Diff Neutrophils % (Manual) (42-75) % Band Neutrophils % % Lymphocytes % (Manual) (20-50) % Monocytes % (Manual) (2-8) % Eosinophils % (Manual) (1-3) % Toxic Granulation Sodium (135-145) mmol/L Potassium (3.6-5.0) mmol/L Chloride (101-111) mmol/L Carbon Dioxide (21.0-31.0) mmol/L Anion Gap BUN (7-18) mg/dL Creatinine (0.6-1.3) mg/dL Est Cr Clr Drug Dosing mL/min Estimated GFR (MDRD) BUN/Creatinine Ratio Glucose (74-105) mg/dL Lactic Acid 1.6 (0.5-2.2) mmol/L Calcium (8.4-10.2) mg/dl Total Bilirubin (0.2-1.0) mg/dL AST (10-42) IU/L ALT (10-60) IU/L Alkaline Phosphatase (42-121) IU/L Troponin I (0.00-0.02) ng/ml B-Natriuretic Peptide (0-100) pg/ml Total Protein (6.7-8.2) g/dl Albumin (3.2-5.5) g/dl Globulin Albumin/Globulin Ratio Amylase (28-100) U/L Lipase (22-51) U/L Urine Color Yellow (YELLOW) Urine Appearance Clear (CLEAR) Urine pH 7.0 (5.0-9.0) Ur Specific [place] 1.020 (1.005-1.030) Urine Protein Trace H (NEGATIVE) Urine Glucose (UA) Negative (NEGATIVE) Urine Ketones Negative (NEGATIVE) Urine Occult Blood Negative (NEGATIVE) Urine Nitrite Negative (NEGATIVE) Urine Bilirubin Negative (NEGATIVE) Urine Urobilinogen 0.2 (0.2-1.0) mg/dL Ur Leukocyte Esterase Negative (NEGATIVE) Urine RBC 0-5 /HPF Urine WBC 0-5 (0-5/HPF) /HPF Ur Epithelial Cells Rare /HPF Urine Bacteria Few (0-FEW/HPF) /HPF Fine Granular Casts Few H (0/LPF) /LPF Urine Mucus Moderate H /LPF - Re-Assessments/Exams Free Text/Narrative Re-Assessment/Exam: 11/29/18 14:47 I personally performed or re-performed the physical examination and medical decision making. I have verified all student documentation or findings, including history, physical exam and/or medical decision making. - My Orders Last 24 Hours: My Active Orders 11/29/18 14:19 Levofloxacin/Dextrose 5%-Water [Levaquin in D5W 750 MG/150 ML] 750 mg Premix Bag 1 bag IV ONETIME 11/29/18 15:24 RT Aerosol Therapy [RC] ASDIRECTED - Assessment/Plan Last 24 Hours: My Active Orders 11/29/18 14:19 Levofloxacin/Dextrose 5%-Water [Levaquin in D5W 750 MG/150 ML] 750 mg Premix Bag 1 bag IV ONETIME 11/29/18 15:24 RT Aerosol Therapy [RC] ASDIRECTED
[2018-11-29] MEDS ORDERED: methylPREDNISolone Sod Succ 125 MG in Sodium Chloride 0.9% 100 ML IV ONE (13:40)
[2018-11-29] MEDS ORDERED: Aspirin 81 MG Tab.Chew PO ONE (13:41)
[2018-11-29] MEDS ORDERED: Albuterol/Ipratropium 3.0-0.5 MG/3 ML Neb Soln NEB ONE ×2 (13:41→15:24)
[2018-11-29] MEDS ORDERED: methylPREDNISolone Sodium Succinate 125 MG/2 ML SDV IVPUSH ONE (13:47)
[2018-11-29] MEDS ORDERED: Acetaminophen 325 MG Tab PO ONE (14:11)
[2018-11-29] MEDS ORDERED: Sodium Chloride 0.9% 1,000 ML IV ONE (14:12)
[2018-11-29] MEDS ORDERED: Ondansetron 4 MG/2 ML SDV IV ONE (14:12)
[2018-11-29] MEDS ORDERED: Levofloxacin/Dextrose 5%-Water 750 MG in Premix Bag 1 BAG IV ONE (14:19)
[2018-11-29 14:25] LABS: ANION GAP 17.2; CHLORIDE,CL 98 mmol/L (101-111); SODIUM,NA 138 mmol/L (135-145)
[2018-11-29] MEDS ORDERED: Sodium Chloride 0.9% 10 ML Syringe FLUSH PRN (16:12)
[2018-11-29] MEDS ORDERED: Ondansetron 4 MG/2 ML SDV IV PRN (16:14)
[2018-11-29] MEDS ORDERED: Metoclopramide 10 MG/2 ML SDV IVPUSH PRN (16:14)
[2018-11-29] MEDS ORDERED: Benzonatate 100 MG Cap PO PRN (16:23)
[2018-11-29] MEDS ORDERED: Albuterol 6.7 GM Inhaler INH PRN (16:23)
[2018-11-29] MEDS ORDERED: guaiFENesin 100 MG/5 ML Soln 5 ML UD Cup PO PRN (16:23)
[2018-11-29] MEDS ORDERED: Lidocaine 5% 700 MG Patch TOP PRN (16:23)
[2018-11-29] MEDS ORDERED: LORazepam 1 MG Tab PO PRN (16:23)
[2018-11-29] MEDS ORDERED: Docusate Sodium 100 MG Cap PO PRN (16:23)
[2018-11-29] MEDS ORDERED: Remove Patch-LIDODERM TRDERM PRN (16:46)
[2018-11-29] MEDS ORDERED: Zolpidem 5 MG Tab PO PRN (16:53)
[2018-11-29] MEDS: Albuterol/Ipratropium 3.0-0.5 MG/3 ML Neb Soln NEB SCH (17:30)
--- NOTE | 2018-11-29 17:32 | PCM.HP ---
H&P History of Present Illness - General Date of Service: 11/29/18 Admit Problem/Dx: Admission Diagnosis/Problem Admission Diagnosis/Problem Gastroenteritis Source of Information: Patient, Family History Limitations: Reports: No Limitations - History of Present Illness Initial Comments - Free Text/Narative: 68 yo F with PMH of COPD on home O2, HLD, DM2, chronic pain syndrome, recently discharged after admission for pneumonia, COPD exacerbation and dc on 11/22 who p /w with nausea, vomiting, diarrhea, abdominal cramps of one day duration. Symptoms started yesterday. Vomitus consisted of recently ingested feeds. No fever, no chills. She has baseline SOB and is on home oxygen. Had some chest discomfort with the vomiting, but this has not reoccured. Recent exposure to young child with gastroenteritis (young niece). In ED, labwork shows hemoconcentration Chest Pain Score (Numeric/FACES): 4 - Related Data Allergies/Adverse Reactions: Allergies Allergy/AdvReac Type Severity Reaction Status Date / Time No Known Allergies Allergy Verified 11/29/18 16:05 Home Medications: Home Meds LORazepam 1 mg PO TID PRN 11/03/14 [History] Theophylline [Theophylline Anhydrous] 300 mg PO BID 11/03/14 [History] Aspirin [Halfprin] 81 mg PO DAILY 11/04/14 [History] Docusate Sodium [Colace] 1 cap PO BID PRN 11/04/14 [History] Multivitamin [Multivitamins] 1 tab PO DAILY 11/04/14 [History] Travoprost [Travatan Z 0.004% Ophth Soln] 1 drop EYEBOTH BEDTIME 11/04/14 [ History] atorvaSTATin Calcium [Atorvastatin Calcium] 20 mg PO BEDTIME 11/04/14 [History] metFORMIN HCl [Metformin HCl] 500 mg PO BIDM 11/04/14 [History] Ferrous Sulfate [Iron] 325 mg PO DAILY 11/21/14 [History] Budesonide [Pulmicort] 1 mg NEB BIDRT 10/13/15 [History] guaiFENesin [Robitussin] 100 mg PO Q6H PRN #1 bottle 10/17/15 [Rx] predniSONE [Prednisone] 10 mg PO DAILY #5 tablet 10/17/15 [Rx] Albuterol [Proventil HFA] 2 puff INH Q4H PRN 11/23/18 [History] Benzonatate 100 mg PO TID PRN 11/23/18 [History] Formoterol Fumarate [Perforomist] 20 mcg NEB BID 11/23/18 [History] Gabapentin [Neurontin] 300 mg PO TID 11/23/18 [History] Insulin Detemir [Levemir Flextouch] 20 units SUBCUT BEDTIME 11/23/18 [History] Latanoprost/Pf [Latanoprost 0.005% Eye Drop] 1 drop EYEBOTH BEDTIME 11/23/18 [ History] Lidocaine 5% [Lidoderm 5%] 1 patch TOP DAILY PRN 11/23/18 [History] Pantoprazole Sodium 40 mg PO DAILY 11/23/18 [History] QUEtiapine Fumarate [Quetiapine Fumarate] 75 mg PO BEDTIME 11/23/18 [History] Saxagliptin HCl [Onglyza] 5 mg PO DAILY 11/23/18 [History] Tolterodine Tartrate [Tolterodine Tartrate ER] 4 mg PO DAILY 11/23/18 [History] Umeclidinium [place] [Incruse Ellipta*] 1 puff IH DAILY 11/23/18 [History] Zolpidem [Ambien] 5 mg PO BEDTIME PRN 11/23/18 [History] oxyCODONE HCl/Acetaminophen [Endocet 10-325 mg Tablet] 1 each PO Q4HR PRN [History] Doxycycline [Vibramycin] 100 mg PO BID #20 cap 11/24/18 [Rx] Past Medical History HEENT History: Reports: Allergic Rhinitis, Cataract Cardiovascular History: Reports: High Cholesterol Respiratory History: Reports: Asthma, Bronchitis, Recurrent, COPD, SOB Gastrointestinal History: Reports: None Genitourinary History: Reports: Urinary Incontinence [employer] S[employer]ETY History: Reports: Musculoskeletal History: Reports: Osteoporosis Other Musculoskeletal History: Restless Leg Syndrome Neurological History: Reports: Other (See Below) Other Neuro History: degenerative joint disease of the spine, closed fracture of cervical vertebra without neurological injury. Psychiatric History: Reports: Bipolar, Depression Endocrine/Metabolic History: Reports: Diabetes, Type II Hematologic History: Reports: None Immunologic History: Reports: None Oncologic (Cancer) History: Reports: None Dermatologic History: Reports: None - Past Surgical History HEENT Surgical History: Reports: Cataract Surgery, Naso-Sinus Surgery Cardiovascular Surgical History: Reports: AAA Repair Female Surgical History: Reports: Hysterectomy Social & Family History - Family History Family Medical History: Noncontributory Cardiac: Reports: CAD Endocrine/Metabolic: Reports: Diabetes, type II Oncologic: Reports: Lung - Tobacco Use Smoking Status *Q: Current Every Day Smoker Years of Tobacco use: 50 Packs/Tins Daily: 1 - Caffeine Use Caffeine Use: Reports: Soda - Recreational Drug Use Recreational Drug Use: No - Living Situation & Occupation Living situation: Reports: with Family Occupation: Retired H&P Review of Systems - Review of Systems: Review Of Systems: ROS reveals no pertinent complaints other than HPI. Exam - Exam Exam: See Below - Vital Signs Vital Signs: Last Vital Signs Temp 36.3 C 11/29/18 15:43 Pulse 118 H 11/29/18 15:44 Resp 26 H 11/29/18 13:43 BP 129/75 11/29/18 13:43 Pulse Ox 93 L 11/29/18 15:44 Weight: 75.75 kg - Exam General: Alert, Oriented HEENT: Conjunctiva Clear Neck: Supple, Trachea Midline Lungs: Clear to Auscultation Cardiovascular: Regular Rate, Regular Rhythm GI/Abdominal Exam: Normal Bowel Sounds, Tender (diffuse abdominal tenderness) Extremities: Normal Inspection, Normal Range of Motion - Patient Data Lab Results Last 24 hrs: Laboratory Results - last 24 hr 11/29/18 11/29/18 11/29/18 Range/Units 12:39 13:59 13:59 WBC 11.1 H (5.0-10.0) 10^3/uL RBC 5.44 H (4.2-5.4) 10^6/uL Hgb 15.7 D (12.0-16.0) g/dL Hct 48.5 H (37.0-47.0) % MCV 89.2 (80-100) fL MCH 28.9 (27.0-34.0) pg MCHC 32.4 L (33.0-35.0) g/dL Plt Count 238 (150-450) 10^3/uL Neut % (Auto) 86.2 H (42.2-75.2) % Lymph % (Auto) 8.6 L (20.5-50.1) % [place] % (Auto) 4.8 (2-8) % Eos % (Auto) 0.4 L (1.0-3.0) % Baso % (Auto) 0.0 (0.0-1.0) % Add Manual Diff Yes Neutrophils % (Manual) 80 H (42-75) % Band Neutrophils % 6 % Lymphocytes % (Manual) 12 L (20-50) % Monocytes % (Manual) 1 L (2-8) % Eosinophils % (Manual) 1 (1-3) % Toxic Granulation 1+ slight Sodium 138 (135-145) mmol/L Potassium 4.2 (3.6-5.0) mmol/L Chloride 98 L (101-111) mmol/L Carbon Dioxide 27.0 (21.0-31.0) mmol/L Anion Gap 17.2 BUN 20 H (7-18) mg/dL Creatinine 0.6 (0.6-1.3) mg/dL Est Cr Clr Drug Dosing 88.48 mL/min Estimated GFR (MDRD) > 60 BUN/Creatinine Ratio 33.33 Glucose 172 H (74-105) mg/dL POC Glucose (70-105) mg/dl Lactic Acid (0.5-2.2) mmol/L Calcium 8.2 L (8.4-10.2) mg/dl Total Bilirubin 0.6 (0.2-1.0) mg/dL AST 17 (10-42) IU/L ALT 15 (10-60) IU/L Alkaline Phosphatase 80 (42-121) IU/L Troponin I < 0.02 (0.00-0.02) ng/ml B-Natriuretic Peptide 17 (0-100) pg/ml Total Protein 6.5 L (6.7-8.2) g/dl Albumin 3.4 (3.2-5.5) g/dl Globulin 3.1 Albumin/Globulin Ratio 1.10 Amylase 21 L (28-100) U/L Lipase 21 L (22-51) U/L Urine Color (YELLOW) Urine Appearance (CLEAR) Urine pH (5.0-9.0) Ur Specific [place] (1.005-1.030) Urine Protein (NEGATIVE) Urine Glucose (UA) (NEGATIVE) Urine Ketones (NEGATIVE) Urine Occult Blood (NEGATIVE) Urine Nitrite (NEGATIVE) Urine Bilirubin (NEGATIVE) Urine Urobilinogen (0.2-1.0) mg/dL Ur Leukocyte Esterase (NEGATIVE) Urine RBC /HPF Urine WBC (0-5/HPF) /HPF Ur Epithelial Cells /HPF Urine Bacteria (0-FEW/HPF) /HPF Fine Granular Casts (0/LPF) /LPF Urine Mucus /LPF 11/29/18 11/29/18 11/29/18 Range/Units 13:59 14:36 17:01 WBC (5.0-10.0) 10^3/uL RBC (4.2-5.4) 10^6/uL Hgb (12.0-16.0) g/dL Hct (37.0-47.0) % MCV (80-100) fL MCH (27.0-34.0) pg MCHC (33.0-35.0) g/dL Plt Count (150-450) 10^3/uL Neut % (Auto) (42.2-75.2) % Lymph % (Auto) (20.5-50.1) % [place] % (Auto) (2-8) % Eos % (Auto) (1.0-3.0) % Baso % (Auto) (0.0-1.0) % Add Manual Diff Neutrophils % (Manual) (42-75) % Band Neutrophils % % Lymphocytes % (Manual) (20-50) % Monocytes % (Manual) (2-8) % Eosinophils % (Manual) (1-3) % Toxic Granulation Sodium (135-145) mmol/L Potassium (3.6-5.0) mmol/L Chloride (101-111) mmol/L Carbon Dioxide (21.0-31.0) mmol/L Anion Gap BUN (7-18) mg/dL Creatinine (0.6-1.3) mg/dL Est Cr Clr Drug Dosing mL/min Estimated GFR (MDRD) BUN/Creatinine Ratio Glucose (74-105) mg/dL POC Glucose 295 H (70-105) mg/dl Lactic Acid 1.6 (0.5-2.2) mmol/L Calcium (8.4-10.2) mg/dl Total Bilirubin (0.2-1.0) mg/dL AST (10-42) IU/L ALT (10-60) IU/L Alkaline Phosphatase (42-121) IU/L Troponin I (0.00-0.02) ng/ml B-Natriuretic Peptide (0-100) pg/ml Total Protein (6.7-8.2) g/dl Albumin (3.2-5.5) g/dl Globulin Albumin/Globulin Ratio Amylase (28-100) U/L Lipase (22-51) U/L Urine Color Yellow (YELLOW) Urine Appearance Clear (CLEAR) Urine pH 7.0 (5.0-9.0) Ur Specific [place] 1.020 (1.005-1.030) Urine Protein Trace H (NEGATIVE) Urine Glucose (UA) Negative (NEGATIVE) Urine Ketones Negative (NEGATIVE) Urine Occult Blood Negative (NEGATIVE) Urine Nitrite Negative (NEGATIVE) Urine Bilirubin Negative (NEGATIVE) Urine Urobilinogen 0.2 (0.2-1.0) mg/dL Ur Leukocyte Esterase Negative (NEGATIVE) Urine RBC 0-5 /HPF Urine WBC 0-5 (0-5/HPF) /HPF Ur Epithelial Cells Rare /HPF Urine Bacteria Few (0-FEW/HPF) /HPF Fine Granular Casts Few H (0/LPF) /LPF Urine Mucus Moderate H /LPF Result Diagrams: 11/29/18 13:59 11/29/18 13:59 Jos Results Last 24 hrs: Microbiology 11/29/18 14:36 Influenza Type A Antigen Screen - Final Nasal, Unspecified NEGATIVE INFLUENZA A VIRUS AG REFERENCE RANGE: NEGATIVE Influenza Type B Antigen Screen - Final NEGATIVE INFLUENZA B VIRUS AG REFERENCE RANGE: NEGATIVE Problem List Initiated/Reviewed/Updated: Yes Orders Last 24hrs: Active Orders 24 hr Category Date Time Status Patient Status [ADT] Routine ADT 11/29/18 16:12 Active Accu Check [Blood Glucose Check, Bedside] [RC] TIDAC Care 11/29/18 16:50 Active Ambulate [RC] ASDIRECTED Care 11/29/18 16:12 Active EKG 12 Lead [EKG Documentation Completion] [RC] STAT Care 11/29/18 13:34 Active Oxygen Therapy [RC] ASDIRECTED Care 11/29/18 16:12 Active Peripheral IV Care [RC] . DIRECTED Care 11/29/18 16:12 Active RT Aerosol Therapy [RC] ASDIRECTED Care 11/29/18 13:41 Active RT Aerosol Therapy [RC] ASDIRECTED Care 11/29/18 15:24 Active RT Aerosol Therapy [RC] ASDIRECTED Care 11/29/18 16:15 Active Up With Assistance [RC] ASDIRECTED Care 11/29/18 16:12 Active VTE/DVT Education [RC] PER UNIT ROUTINE Care 11/29/18 16:12 Active Vital Signs [RC] Q4H Care 11/29/18 16:12 Active Consistent Carbohydrate Diet [DIET] Diet 11/29/18 Dinner Active CLOSTRIDIUM DIFFICILE TOX RFLX [MREF] Stat Lab 11/29/18 16:27 Ordered CULTURE BLOOD [BC] Stat Lab 11/29/18 13:59 Received CULTURE BLOOD [BC] Stat Lab 11/29/18 14:20 Received Acetaminophen/oxyCODONE [Percocet 325-5 MG] Med 11/29/18 17:00 Active 1 tab PO Q4H PRN Albuterol [Proventil HFA] Med 11/29/18 16:23 Active 0 gm INH Q4H PRN Albuterol/Ipratropium [DuoNeb 3.0-0.5 MG/3 ML] Med 11/29/18 18:00 Active 3 ml NEB Q6HRRT Aspirin [Halfprin] Med 11/30/18 09:00 Active 81 mg PO DAILY Benzonatate [Tessalon Perles] Med 11/29/18 16:23 Active 100 mg PO TID PRN Budesonide [Pulmicort] Med 11/29/18 18:00 Active 1 mg NEB BIDRT Docusate Sodium [Colace] Med 11/29/18 16:23 Active 100 mg PO BID PRN Doxycycline [Vibramycin] Med 11/29/18 21:00 Active 100 mg PO BID Ferrous Sulfate Med 11/30/18 09:00 Active 325 mg PO DAILY Formoterol Fumarate [Perforomist] Med 11/29/18 21:00 Pending 20 mcg NEB BID Gabapentin [Neurontin] Med 11/29/18 21:00 Active 300 mg PO TID Heparin Sodium Med 11/29/18 17:15 Ordered 5,000 units SUBCUT Q8H Insulin Glarg,Human.Rec.Analog [LantUS] Med 11/29/18 21:00 Active 20 unit SUBCUT BEDTIME Insulin Lispro [HumaLOG] Med 11/29/18 17:00 Active See Protocol SUBCUT TIDAC LORazepam [Ativan] Med 11/29/18 16:23 Active 1 mg PO TID PRN Latanoprost [Xalatan 0.005% Ophth Soln] Med 11/29/18 21:00 Active 0 ml EYEBOTH BEDTIME Lidocaine 5% [Lidoderm 5%] Med 11/29/18 16:23 Active 700 mg TOP DAILY PRN Metoclopramide [Reglan] Med 11/29/18 16:14 Active 5 mg IVPUSH Q6H PRN Multivitamins,Therapeutic [Thera] Med 11/30/18 09:00 Active 1 each PO DAILY Ondansetron [Zofran] Med 11/29/18 16:14 Active 4 mg IV Q6HR PRN Pantoprazole [ProTONIX] Med 11/30/18 06:00 Active 40 mg PO ACBREAKFAST QUEtiapine [SEROquel] Med 11/29/18 21:00 Active 75 mg PO BEDTIME Remove Patch Med 11/29/18 16:46 Active 1 ea TRDERM BEDTIME PRN Sodium Chloride 0.9% [Normal Saline] 1,000 ml Med 11/29/18 16:15 Active IV ASDIRECTED Sodium Chloride 0.9% [Saline Flush] Med 11/29/18 16:12 Active 10 ml FLUSH ASDIRECTED PRN Theophylline [Theophylline Anhydrous] Med 11/29/18 21:00 Active 300 mg PO BID Tolterodine [Detrol LA 24 Hr] Med 11/30/18 09:00 Active 4 mg PO DAILY Travoprost [Travatan Z 0.004% Ophth Soln] Med 11/29/18 21:00 Pending 1 drop EYEBOTH BEDTIME Umeclidinium [place] [Incruse Ellipta*] Med 11/30/18 09:00 Pending 1 puff IH DAILY Zolpidem [Ambien] Med 11/29/18 16:53 Active 5 mg PO BEDTIME PRN atorvaSTATin [Lipitor] Med 11/29/18 21:00 Active 20 mg PO BEDTIME guaiFENesin [Robitussin] Med 11/29/18 16:23 Active 100 mg PO Q6H PRN predniSONE Med 11/30/18 09:00 Active 10 mg PO DAILY Blood Culture x2 Reflex Set [OM.PC] Stat Oth 11/29/18 13:43 Ordered Isolation [COMM] Stat Oth 11/29/18 16:27 Ordered Peripheral IV Insertion Adult [OM.PC] Routine Oth 11/29/18 16:12 Ordered Saline Lock Insert [OM.PC] Routine Oth 11/29/18 16:12 Ordered Code Status [Resuscitation Status] Routine Resus Stat 11/29/18 16:13 Ordered Medication Orders Albuterol (Proventil Hfa) 0 gm INH Q4H PRN PRN Reason: Shortness of Breath Albuterol/Ipratropium (Duoneb 3.0-0.5 Mg/3 Ml) 3 ml NEB Q6HRRT [facility] Aspirin (Halfprin) 81 mg PO DAILY [facility] Atorvastatin Calcium (Lipitor) 20 mg PO BEDTIME [facility] Benzonatate (Tessalon Perles) 100 mg PO TID PRN PRN Reason: Cough Budesonide (Pulmicort) 1 mg NEB BIDRT [facility] Docusate Sodium (Colace) 100 mg PO BID PRN PRN Reason: Constipation Doxycycline Hyclate (Vibramycin) 100 mg PO BID [facility] Ferrous Sulfate (Ferrous Sulfate) 325 mg PO DAILY [facility] Gabapentin (Neurontin) 300 mg PO TID [facility] Guaifenesin (Robitussin) 100 mg PO Q6H PRN PRN Reason: Cough Heparin Sodium (Porcine) (Heparin Sodium) 5,000 units SUBCUT Q8H [facility] Sodium Chloride (Normal Saline) 1,000 mls @ 150 mls/hr IV ASDIRECTED [facility] Insulin Glargine (Lantus) 20 unit SUBCUT BEDTIME [facility] Insulin Human Lispro (Humalog) 0 unit SUBCUT TIDAC [facility]; Protocol Latanoprost (Xalatan 0.005% Ophth Soln) 0 ml EYEBOTH BEDTIME [facility] Lidocaine (Lidoderm 5%) 700 mg TOP DAILY PRN PRN Reason: Pain Lorazepam (Ativan) 1 mg PO TID PRN PRN Reason: Anxiety Metoclopramide HCl (Reglan) 5 mg IVPUSH Q6H PRN PRN Reason: Nausea/Vomiting Miscellaneous Information (Remove Patch) 1 ea TRDERM BEDTIME PRN PRN Reason: IF PATCH USED Multivitamins (Thera) 1 each PO DAILY [facility] Formoterol Fumarate ([Perforomist] 20mcg) 20 mcg NEB BID [facility] Travoprost [Travatan Z] 0.004% Ophth Soln 1 drop EYEBOTH BEDTIME [facility] Umeclidinium [place] [Incruse Ellipta*] 1 Puff 1 puff IH DAILY [facility] Ondansetron HCl (Zofran) 4 mg IV Q6HR PRN PRN Reason: Nausea Oxycodone/Acetaminophen (Percocet 325-5 Mg) 1 tab PO Q4H PRN PRN Reason: PAIN Pantoprazole Sodium (Protonix) 40 mg PO ACBREAKFAST [facility] Prednisone (Prednisone) 10 mg PO DAILY [facility] Quetiapine Fumarate (Seroquel) 75 mg PO BEDTIME [facility] Sodium Chloride (Saline Flush) 10 ml FLUSH ASDIRECTED PRN PRN Reason: Keep Vein Open Theophylline (Theophylline Anhydrous) 300 mg PO BID [facility] Tolterodine Tartrate (Detrol [place] 24 Hr) 4 mg PO DAILY [facility] Zolpidem Tartrate (Ambien) 5 mg PO BEDTIME PRN PRN Reason: SLEEP Assessment/Plan Comment:: #Gastroenteritis likely viral IVF hydration supportive therapy check C diff (recent abx therapy for pneumonia) #Hx of COPD not in acute exacerbation continue steroid taper continue duonebs, home meds #Hx of depression continue home meds #Hx of DM2 ISS, accuchecks continue home detemir 20 units HS carb controlled diet hold metformin, sitagliptin #DVT ppx SC heparin #Code status FC
[2018-11-29] MEDS: Insulin Lispro 100 Units/ML 3 ML Vial SUBCUT SCH (17:38)
[2018-11-29] MEDS: Sodium Chloride 0.9% 1,000 ML IV SCH (17:40)
[2018-11-29] MEDS: Budesonide 0.5 MG/2 ML Neb Susp NEB SCH (17:49)
[2018-11-29] MEDS ORDERED: Heparin Sodium 5,000 Units/ML Vial SUBCUT SCH (18:00)
[2018-11-29] MEDS: Acetaminophen/oxyCODONE 325-5 MG Tab PO PRN (19:32)
[2018-11-29] MEDS ORDERED: Doxycycline 100 MG Cap PO SCH (21:00)
[2018-11-29] MEDS ORDERED: Latanoprost 0.005% Ophth Soln 2.5 ML Bottle EYEBOTH SCH (21:00)
[2018-11-29] MEDS ORDERED: FORMOTEROL FUMARATE 20 MCG NEB SCH (21:00)
[2018-11-29] MEDS ORDERED: QUEtiapine 25 MG Tab PO SCH (21:00)
[2018-11-29] MEDS ORDERED: atorvaSTATin 20 MG Tab PO SCH (21:00)
[2018-11-29] MEDS ORDERED: Insulin Glarg,Human.Rec.Analog 100 UNIT/ML ML SUBCUT SCH (21:00)
[2018-11-29] MEDS: Gabapentin 300 MG Cap PO SCH (21:22)
[2018-11-29] MEDS: Theophylline 300 MG Tab.ER PO SCH (21:22)
[2018-11-30] MEDS: Sodium Chloride 0.9% 1,000 ML IV SCH ×2 (00:09→05:49)
[2018-11-30] MEDS: Albuterol/Ipratropium 3.0-0.5 MG/3 ML Neb Soln NEB SCH ×3 (01:23→13:07)
[2018-11-30] MEDS ORDERED: Heparin Sodium 5,000 Units/ML Vial SUBCUT SCH (06:00)
[2018-11-30] MEDS ORDERED: Pantoprazole 40 MG Tab.CR PO SCH (06:00)
[2018-11-30 06:54] LABS: ANION GAP 12.1; CHLORIDE,CL 103 mmol/L (101-111); SODIUM,NA 137 mmol/L (135-145)
[2018-11-30] MEDS: Budesonide 0.5 MG/2 ML Neb Susp NEB SCH (07:07)
[2018-11-30] MEDS: Insulin Lispro 100 Units/ML 3 ML Vial SUBCUT SCH ×2 (07:58→13:12)
[2018-11-30] MEDS ORDERED: Aspirin 81 MG Tab.EC PO SCH (09:00)
[2018-11-30] MEDS ORDERED: UMECLIDINIUM BROMIDE IH SCH (09:00)
[2018-11-30] MEDS ORDERED: predniSONE 10 MG Tab PO SCH (09:00)
[2018-11-30] MEDS ORDERED: Tolterodine 2 MG Cap.ER PO SCH (09:00)
[2018-11-30] MEDS ORDERED: Ferrous Sulfate 325 MG Tab PO SCH (09:00)
[2018-11-30] MEDS ORDERED: Multivitamins,Therapeutic Tab PO SCH (09:00)
[2018-11-30] MEDS: Acetaminophen/oxyCODONE 325-5 MG Tab PO PRN (09:09)
[2018-11-30] MEDS: Theophylline 300 MG Tab.ER PO SCH (09:11)
[2018-11-30] MEDS: Gabapentin 300 MG Cap PO SCH (09:11)
--- NOTE | 2018-11-30 11:35 | PCM.DCSUM1 ---
Discharge Summary - Hospital Course Free Text/Narrative:: 68 yo F with PMH of COPD on home O2, HLD, DM2, chronic pain syndrome, recently discharged after admission for pneumonia, COPD exacerbation and dc on 11/22 who p /w with nausea, vomiting, diarrhea, abdominal cramps of one day duration. Symptoms started the day prior to admission. Vomitus consisted of recently ingested feeds. No fever, no chills. She has baseline SOB and is on home oxygen. patient reported overeating fried food. her symptoms are resolved. She went back to her baseline. She'll be discharged in stable condition. - Discharge Data Discharge Date: 11/30/18 Discharge Disposition: Home, Self-Care 01 Condition: Good - Discharge Plan *PRESCRIPTION DRUG MONITORING PROGRAM REVIEWED*: Not Applicable *COPY OF PRESCRIPTION DRUG MONITORING REPORT IN PATIENT KARLI: Not Applicable Prescriptions/Med Rec: Albuterol/Ipratropium [DuoNeb 3.0-0.5 MG/3 ML] 3 ml NEB QID PRN #90 neb PRN Reason: Wheezing Home Medications: Home Meds LORazepam 1 mg PO TID PRN 11/03/14 [History] Theophylline [Theophylline Anhydrous] 300 mg PO BID 11/03/14 [History] Aspirin [Halfprin] 81 mg PO DAILY 11/04/14 [History] Docusate Sodium [Colace] 1 cap PO BID PRN 11/04/14 [History] Multivitamin [Multivitamins] 1 tab PO DAILY 11/04/14 [History] Travoprost [Travatan Z 0.004% Ophth Soln] 1 drop EYEBOTH BEDTIME 11/04/14 [ History] atorvaSTATin Calcium [Atorvastatin Calcium] 20 mg PO BEDTIME 11/04/14 [History] metFORMIN HCl [Metformin HCl] 500 mg PO BIDM 11/04/14 [History] Ferrous Sulfate [Iron] 325 mg PO DAILY 11/21/14 [History] Budesonide [Pulmicort] 1 mg NEB BIDRT 10/13/15 [History] guaiFENesin [Robitussin] 100 mg PO Q6H PRN #1 bottle 10/17/15 [Rx] predniSONE [Prednisone] 10 mg PO DAILY #5 tablet 10/17/15 [Rx] Albuterol [Proventil HFA] 2 puff INH Q4H PRN 11/23/18 [History] Benzonatate 100 mg PO TID PRN 11/23/18 [History] Formoterol Fumarate [Perforomist] 20 mcg NEB BID 11/23/18 [History] Gabapentin [Neurontin] 300 mg PO TID 11/23/18 [History] Insulin Detemir [Levemir Flextouch] 20 units SUBCUT BEDTIME 11/23/18 [History] Latanoprost/Pf [Latanoprost 0.005% Eye Drop] 1 drop EYEBOTH BEDTIME 11/23/18 [ History] Lidocaine 5% [Lidoderm 5%] 1 patch TOP DAILY PRN 11/23/18 [History] Pantoprazole Sodium 40 mg PO DAILY 11/23/18 [History] QUEtiapine Fumarate [Quetiapine Fumarate] 75 mg PO BEDTIME 11/23/18 [History] Saxagliptin HCl [Onglyza] 5 mg PO DAILY 11/23/18 [History] Tolterodine Tartrate [Tolterodine Tartrate ER] 4 mg PO DAILY 11/23/18 [History] Umeclidinium Dennard [Incruse Ellipta*] 1 puff IH DAILY 11/23/18 [History] Zolpidem [Ambien] 5 mg PO BEDTIME PRN 11/23/18 [History] oxyCODONE HCl/Acetaminophen [Endocet 10-325 mg Tablet] 1 each PO Q4HR PRN [History] Doxycycline [Vibramycin] 100 mg PO BID #20 cap 11/24/18 [Rx] Albuterol/Ipratropium [DuoNeb 3.0-0.5 MG/3 ML] 3 ml NEB QID PRN #90 neb [Rx] Patient Handouts: Viral Gastroenteritis, Adult Referrals: Unruly Florence MD [Ordering Only Provider] - - Discharge Summary/Plan Comment DC Time >30 min.: Yes - General Info Date of Service: 11/30/18 Admission Dx/Problem (Free Text: Admission Diagnosis/Problem Admission Diagnosis/Problem Gastroenteritis - Review of Systems General: Reports: No Symptoms HEENT: Reports: No Symptoms Pulmonary: Reports: Shortness of Breath (chronic), Wheezing (chronic) Cardiovascular: Reports: No Symptoms Gastrointestinal: Reports: No Symptoms Genitourinary: Reports: No Symptoms Skin: Reports: No Symptoms Neurological: Reports: No Symptoms Psychiatric: Reports: No Symptoms - Patient Data Vitals - Most Recent: Last Vital Signs Temp 36.9 C 11/30/18 08:49 Pulse 75 11/30/18 08:49 Resp 20 11/30/18 08:49 BP 100/88 11/30/18 08:49 Pulse Ox 97 11/30/18 08:49 Weight - Most Recent: 75.75 kg I&O - Last 24 hours: Intake & Output 11/29/18 11/30/18 11/30/18 22:59 06:59 14:59 Intake Total 1029 1805 Output Total 350 1300 Balance 679 505 Lab Results - Last 24 hrs: Laboratory Results - last 24 hr 11/29/18 11/29/18 11/29/18 Range/Units 12:39 13:59 13:59 WBC 11.1 H (5.0-10.0) 10^3/uL RBC 5.44 H (4.2-5.4) 10^6/uL Hgb 15.7 D (12.0-16.0) g/dL Hct 48.5 H (37.0-47.0) % MCV 89.2 (80-100) fL MCH 28.9 (27.0-34.0) pg MCHC 32.4 L (33.0-35.0) g/dL Plt Count 238 (150-450) 10^3/uL Neut % (Auto) 86.2 H (42.2-75.2) % Lymph % (Auto) 8.6 L (20.5-50.1) % Mccracken % (Auto) 4.8 (2-8) % Eos % (Auto) 0.4 L (1.0-3.0) % Baso % (Auto) 0.0 (0.0-1.0) % Add Manual Diff Yes Neutrophils % (Manual) 80 H (42-75) % Band Neutrophils % 6 % Lymphocytes % (Manual) 12 L (20-50) % Monocytes % (Manual) 1 L (2-8) % Eosinophils % (Manual) 1 (1-3) % Toxic Granulation 1+ slight Sodium 138 (135-145) mmol/L Potassium 4.2 (3.6-5.0) mmol/L Chloride 98 L (101-111) mmol/L Carbon Dioxide 27.0 (21.0-31.0) mmol/L Anion Gap 17.2 BUN 20 H (7-18) mg/dL Creatinine 0.6 (0.6-1.3) mg/dL Est Cr Clr Drug Dosing 88.48 mL/min Estimated GFR (MDRD) > 60 BUN/Creatinine Ratio 33.33 Glucose 172 H (74-105) mg/dL POC Glucose (70-105) mg/dl Lactic Acid (0.5-2.2) mmol/L Calcium 8.2 L (8.4-10.2) mg/dl Total Bilirubin 0.6 (0.2-1.0) mg/dL AST 17 (10-42) IU/L ALT 15 (10-60) IU/L Alkaline Phosphatase 80 (42-121) IU/L Troponin I < 0.02 (0.00-0.02) ng/ml B-Natriuretic Peptide 17 (0-100) pg/ml Total Protein 6.5 L (6.7-8.2) g/dl Albumin 3.4 (3.2-5.5) g/dl Globulin 3.1 Albumin/Globulin Ratio 1.10 Amylase 21 L (28-100) U/L Lipase 21 L (22-51) U/L Urine Color (YELLOW) Urine Appearance (CLEAR) Urine pH (5.0-9.0) Ur Specific Murdo (1.005-1.030) Urine Protein (NEGATIVE) Urine Glucose (UA) (NEGATIVE) Urine Ketones (NEGATIVE) Urine Occult Blood (NEGATIVE) Urine Nitrite (NEGATIVE) Urine Bilirubin (NEGATIVE) Urine Urobilinogen (0.2-1.0) mg/dL Ur Leukocyte Esterase (NEGATIVE) Urine RBC /HPF Urine WBC (0-5/HPF) /HPF Ur Epithelial Cells /HPF Urine Bacteria (0-FEW/HPF) /HPF Fine Granular Casts (0/LPF) /LPF Urine Mucus /LPF 11/29/18 11/29/18 11/29/18 Range/Units 13:59 14:36 17:01 WBC (5.0-10.0) 10^3/uL RBC (4.2-5.4) 10^6/uL Hgb (12.0-16.0) g/dL Hct (37.0-47.0) % MCV (80-100) fL MCH (27.0-34.0) pg MCHC (33.0-35.0) g/dL Plt Count (150-450) 10^3/uL Neut % (Auto) (42.2-75.2) % Lymph % (Auto) (20.5-50.1) % Mccracken % (Auto) (2-8) % Eos % (Auto) (1.0-3.0) % Baso % (Auto) (0.0-1.0) % Add Manual Diff Neutrophils % (Manual) (42-75) % Band Neutrophils % % Lymphocytes % (Manual) (20-50) % Monocytes % (Manual) (2-8) % Eosinophils % (Manual) (1-3) % Toxic Granulation Sodium (135-145) mmol/L Potassium (3.6-5.0) mmol/L Chloride (101-111) mmol/L Carbon Dioxide (21.0-31.0) mmol/L Anion Gap BUN (7-18) mg/dL Creatinine (0.6-1.3) mg/dL Est Cr Clr Drug Dosing mL/min Estimated GFR (MDRD) BUN/Creatinine Ratio Glucose (74-105) mg/dL POC Glucose 295 H (70-105) mg/dl Lactic Acid 1.6 (0.5-2.2) mmol/L Calcium (8.4-10.2) mg/dl Total Bilirubin (0.2-1.0) mg/dL AST (10-42) IU/L ALT (10-60) IU/L Alkaline Phosphatase (42-121) IU/L Troponin I (0.00-0.02) ng/ml B-Natriuretic Peptide (0-100) pg/ml Total Protein (6.7-8.2) g/dl Albumin (3.2-5.5) g/dl Globulin Albumin/Globulin Ratio Amylase (28-100) U/L Lipase (22-51) U/L Urine Color Yellow (YELLOW) Urine Appearance Clear (CLEAR) Urine pH 7.0 (5.0-9.0) Ur Specific Murdo 1.020 (1.005-1.030) Urine Protein Trace H (NEGATIVE) Urine Glucose (UA) Negative (NEGATIVE) Urine Ketones Negative (NEGATIVE) Urine Occult Blood Negative (NEGATIVE) Urine Nitrite Negative (NEGATIVE) Urine Bilirubin Negative (NEGATIVE) Urine Urobilinogen 0.2 (0.2-1.0) mg/dL Ur Leukocyte Esterase Negative (NEGATIVE) Urine RBC 0-5 /HPF Urine WBC 0-5 (0-5/HPF) /HPF Ur Epithelial Cells Rare /HPF Urine Bacteria Few (0-FEW/HPF) /HPF Fine Granular Casts Few H (0/LPF) /LPF Urine Mucus Moderate H /LPF 11/29/18 11/30/18 11/30/18 Range/Units 21:04 06:15 06:15 WBC 9.8 (5.0-10.0) 10^3/uL RBC 4.34 (4.2-5.4) 10^6/uL Hgb 12.6 D (12.0-16.0) g/dL Hct 39.2 (37.0-47.0) % MCV 90.3 (80-100) fL MCH 29.0 (27.0-34.0) pg MCHC 32.1 L (33.0-35.0) g/dL Plt Count 188 (150-450) 10^3/uL Neut % (Auto) 86.1 H (42.2-75.2) % Lymph % (Auto) 6.1 L (20.5-50.1) % Mccracken % (Auto) 7.2 (2-8) % Eos % (Auto) 0.5 L (1.0-3.0) % Baso % (Auto) 0.1 (0.0-1.0) % Add Manual Diff Neutrophils % (Manual) (42-75) % Band Neutrophils % % Lymphocytes % (Manual) (20-50) % Monocytes % (Manual) (2-8) % Eosinophils % (Manual) (1-3) % Toxic Granulation Sodium 137 (135-145) mmol/L Potassium 4.1 (3.6-5.0) mmol/L Chloride 103 (101-111) mmol/L Carbon Dioxide 26.0 (21.0-31.0) mmol/L Anion Gap 12.1 BUN 17 (7-18) mg/dL Creatinine 0.5 L (0.6-1.3) mg/dL Est Cr Clr Drug Dosing 98.25 mL/min Estimated GFR (MDRD) > 60 BUN/Creatinine Ratio Glucose 136 H (74-105) mg/dL POC Glucose 282 H (70-105) mg/dl Lactic Acid (0.5-2.2) mmol/L Calcium 7.2 L (8.4-10.2) mg/dl Total Bilirubin (0.2-1.0) mg/dL AST (10-42) IU/L ALT (10-60) IU/L Alkaline Phosphatase (42-121) IU/L Troponin I (0.00-0.02) ng/ml B-Natriuretic Peptide (0-100) pg/ml Total Protein (6.7-8.2) g/dl Albumin (3.2-5.5) g/dl Globulin Albumin/Globulin Ratio Amylase (28-100) U/L Lipase (22-51) U/L Urine Color (YELLOW) Urine Appearance (CLEAR) Urine pH (5.0-9.0) Ur Specific Murdo (1.005-1.030) Urine Protein (NEGATIVE) Urine Glucose (UA) (NEGATIVE) Urine Ketones (NEGATIVE) Urine Occult Blood (NEGATIVE) Urine Nitrite (NEGATIVE) Urine Bilirubin (NEGATIVE) Urine Urobilinogen (0.2-1.0) mg/dL Ur Leukocyte Esterase (NEGATIVE) Urine RBC /HPF Urine WBC (0-5/HPF) /HPF Ur Epithelial Cells /HPF Urine Bacteria (0-FEW/HPF) /HPF Fine Granular Casts (0/LPF) /LPF Urine Mucus /LPF 11/30/18 11/30/18 Range/Units 07:48 11:24 WBC (5.0-10.0) 10^3/uL RBC (4.2-5.4) 10^6/uL Hgb (12.0-16.0) g/dL Hct (37.0-47.0) % MCV (80-100) fL MCH (27.0-34.0) pg MCHC (33.0-35.0) g/dL Plt Count (150-450) 10^3/uL Neut % (Auto) (42.2-75.2) % Lymph % (Auto) (20.5-50.1) % Mccracken % (Auto) (2-8) % Eos % (Auto) (1.0-3.0) % Baso % (Auto) (0.0-1.0) % Add Manual Diff Neutrophils % (Manual) (42-75) % Band Neutrophils % % Lymphocytes % (Manual) (20-50) % Monocytes % (Manual) (2-8) % Eosinophils % (Manual) (1-3) % Toxic Granulation Sodium (135-145) mmol/L Potassium (3.6-5.0) mmol/L Chloride (101-111) mmol/L Carbon Dioxide (21.0-31.0) mmol/L Anion Gap BUN (7-18) mg/dL Creatinine (0.6-1.3) mg/dL Est Cr Clr Drug Dosing mL/min Estimated GFR (MDRD) BUN/Creatinine Ratio Glucose (74-105) mg/dL POC Glucose 129 H 199 H (70-105) mg/dl Lactic Acid (0.5-2.2) mmol/L Calcium (8.4-10.2) mg/dl Total Bilirubin (0.2-1.0) mg/dL AST (10-42) IU/L ALT (10-60) IU/L Alkaline Phosphatase (42-121) IU/L Troponin I (0.00-0.02) ng/ml B-Natriuretic Peptide (0-100) pg/ml Total Protein (6.7-8.2) g/dl Albumin (3.2-5.5) g/dl Globulin Albumin/Globulin Ratio Amylase (28-100) U/L Lipase (22-51) U/L Urine Color (YELLOW) Urine Appearance (CLEAR) Urine pH (5.0-9.0) Ur Specific Murdo (1.005-1.030) Urine Protein (NEGATIVE) Urine Glucose (UA) (NEGATIVE) Urine Ketones (NEGATIVE) Urine Occult Blood (NEGATIVE) Urine Nitrite (NEGATIVE) Urine Bilirubin (NEGATIVE) Urine Urobilinogen (0.2-1.0) mg/dL Ur Leukocyte Esterase (NEGATIVE) Urine RBC /HPF Urine WBC (0-5/HPF) /HPF Ur Epithelial Cells /HPF Urine Bacteria (0-FEW/HPF) /HPF Fine Granular Casts (0/LPF) /LPF Urine Mucus /LPF DUANE Results - Last 24 hrs: Microbiology 11/29/18 14:36 Influenza Type A Antigen Screen - Final Nasal, Unspecified NEGATIVE INFLUENZA A VIRUS AG REFERENCE RANGE: NEGATIVE Influenza Type B Antigen Screen - Final NEGATIVE INFLUENZA B VIRUS AG REFERENCE RANGE: NEGATIVE Med Orders - Current: Current Medications Albuterol (Proventil Hfa) 0 gm INH Q4H PRN PRN Reason: Shortness of Breath Albuterol/Ipratropium (Duoneb 3.0-0.5 Mg/3 Ml) 3 ml NEB Q6HRRT [facility] Last Admin: 11/30/18 07:07 Dose: 3 ml Aspirin (Halfprin) 81 mg PO DAILY [facility] Last Admin: 11/30/18 09:11 Dose: 81 mg Atorvastatin Calcium (Lipitor) 20 mg PO BEDTIME [facility] Last Admin: 11/29/18 21:22 Dose: 20 mg Benzonatate (Tessalon Perles) 100 mg PO TID PRN PRN Reason: Cough Budesonide (Pulmicort) 1 mg NEB BIDRT [facility] Last Admin: 11/30/18 07:07 Dose: 1 mg Docusate Sodium (Colace) 100 mg PO BID PRN PRN Reason: Constipation Ferrous Sulfate (Ferrous Sulfate) 325 mg PO DAILY [facility] Last Admin: 11/30/18 09:11 Dose: 325 mg Gabapentin (Neurontin) 300 mg PO TID [facility] Last Admin: 11/30/18 09:11 Dose: 300 mg Guaifenesin (Robitussin) 100 mg PO Q6H PRN PRN Reason: Cough Heparin Sodium (Porcine) (Heparin Sodium) 5,000 units SUBCUT Q8H [facility] Last Admin: 11/30/18 05:46 Dose: 5,000 units Sodium Chloride (Normal Saline) 1,000 mls @ 150 mls/hr IV ASDIRECTED [facility] Last Admin: 11/30/18 05:49 Dose: 150 mls/hr Insulin Glargine (Lantus) 20 unit SUBCUT BEDTIME [facility] Last Admin: 11/29/18 21:23 Dose: 20 units Insulin Human Lispro (Humalog) 0 unit SUBCUT TIDAC [facility]; Protocol Last Admin: 11/30/18 07:58 Dose: Not Given Latanoprost (Xalatan 0.005% Ophth Soln) 0 ml EYEBOTH BEDTIME [facility] Last Admin: 11/29/18 21:19 Dose: 1 drop Lidocaine (Lidoderm 5%) 700 mg TOP DAILY PRN PRN Reason: Pain Last Admin: 11/29/18 17:38 Dose: 700 mg Lorazepam (Ativan) 1 mg PO TID PRN PRN Reason: Anxiety Metoclopramide HCl (Reglan) 5 mg IVPUSH Q6H PRN PRN Reason: Nausea/Vomiting Miscellaneous Information (Remove Patch) 1 ea TRDERM BEDTIME PRN PRN Reason: IF PATCH USED Multivitamins (Thera) 1 each PO DAILY [facility] Last Admin: 11/30/18 09:11 Dose: 1 each Formoterol Fumarate ([Perforomist] 20mcg) 20 mcg NEB BID [facility] Umeclidinium Dennard [Incruse Ellipta*] 1 Puff 1 puff IH DAILY [facility] Ondansetron HCl (Zofran) 4 mg IV Q6HR PRN PRN Reason: Nausea Oxycodone/Acetaminophen (Percocet 325-5 Mg) 1 tab PO Q4H PRN PRN Reason: PAIN Last Admin: 11/30/18 09:09 Dose: 1 tab Pantoprazole Sodium (Protonix) 40 mg PO ACBREAKFAST [facility] Last Admin: 11/30/18 05:46 Dose: 40 mg Prednisone (Prednisone) 10 mg PO DAILY [facility] Last Admin: 11/30/18 09:11 Dose: 10 mg Quetiapine Fumarate (Seroquel) 75 mg PO BEDTIME [facility] Last Admin: 11/29/18 21:20 Dose: 75 mg Sodium Chloride (Saline Flush) 10 ml FLUSH ASDIRECTED PRN PRN Reason: Keep Vein Open Last Admin: 11/29/18 17:40 Dose: 10 ml Theophylline (Theophylline Anhydrous) 300 mg PO BID [facility] Last Admin: 11/30/18 09:11 Dose: 300 mg Tolterodine Tartrate (Detrol La 24 Hr) 4 mg PO DAILY [facility] Last Admin: 11/30/18 09:11 Dose: 4 mg Zolpidem Tartrate (Ambien) 5 mg PO BEDTIME PRN PRN Reason: SLEEP Last Admin: 11/29/18 21:22 Dose: 5 mg Discontinued Medications Acetaminophen (Tylenol) 975 mg PO NOW ONE Stop: 11/29/18 14:12 Last Admin: 11/29/18 14:20 Dose: 975 mg Albuterol/Ipratropium (Duoneb 3.0-0.5 Mg/3 Ml) 3 ml NEB ONETIME ONE Stop: 11/29/18 13:42 Last Admin: 11/29/18 14:05 Dose: 3 ml Albuterol/Ipratropium (Duoneb 3.0-0.5 Mg/3 Ml) 3 ml NEB ONETIME ONE Stop: 11/29/18 15:25 Last Admin: 11/29/18 15:43 Dose: 3 ml Aspirin (Aspirin) 324 mg PO ONETIME ONE Stop: 11/29/18 13:42 Last Admin: 11/29/18 14:05 Dose: 324 mg Doxycycline Hyclate (Vibramycin) 100 mg PO BID [facility] Heparin Sodium (Porcine) (Heparin Sodium) 5,000 units SUBCUT Q8H [facility] Last Admin: 11/29/18 17:49 Dose: 5,000 units Methylprednisolone Sodium Succinate 125 mg/ Sodium Chloride 101 mls @ 100 mls/ hr IV ONETIME ONE Stop: 11/29/18 14:44 Last Admin: 11/29/18 14:05 Dose: Not Given Sodium Chloride (Normal Saline) 1,000 mls @ 999 mls/hr IV .BOLUS ONE Stop: 11/29/18 15:12 Last Admin: 11/29/18 14:20 Dose: 999 mls/hr Levofloxacin/Dextrose 750 mg/ (Premix) 150 mls @ 100 mls/hr IV ONETIME ONE Stop: 11/29/18 15:48 Last Admin: 11/29/18 14:23 Dose: 100 mls/hr Methylprednisolone Sodium Succinate (Solu-Medrol) 125 mg IVPUSH ONETIME ONE Stop: 11/29/18 13:48 Last Admin: 11/29/18 14:05 Dose: 125 mg Ondansetron HCl (Zofran) 4 mg IV ONETIME ONE Stop: 11/29/18 14:13 Last Admin: 11/29/18 14:20 Dose: 4 mg - Exam General: Reports: Alert, Oriented Lungs: Reports: Normal Respiratory Effort, Wheezing (scattered end expiratory) Cardiovascular: Reports: Regular Rate, Regular Rhythm GI/Abdominal Exam: Normal Bowel Sounds, Soft, Non-Tender Skin: Reports: Warm, Dry, Intact Neurological: Reports: No New Focal Deficit Psy/Mental Status: Reports: Alert, Normal Affect, Normal Mood
[2018-11-30 12:58] VITALS: BP 103/86
== END 2018-11-30 13:30 | disposition home or self-care (01) ==
LOC: DL.ED 13:38 → UNDOADMIN 15:50 → DL.MS 15:50 → INTOOBSV 16:12 → DL.MS 16:12
PROVIDERS: ADMIT Hospitalist; ATTEND Internal Medicine
DX: J44.1 Chronic obstructive pulmonary disease with (acute) exacerbation (principal); K52.9 Noninfective gastroenteritis and colitis, unspecified; I82.409 Acute embolism and thrombosis of unspecified deep veins of unspecified lower extremity; E11.9 Type 2 diabetes mellitus without complications; F17.210 Nicotine dependence, cigarettes, uncomplicated; F32.9 Major depressive disorder, single episode, unspecified; Z79.82 Long term (current) use of aspirin; Z79.4 Long term (current) use of insulin; Z79.51 Long term (current) use of inhaled steroids; Z79.891 Long term (current) use of opiate analgesic; Z79.899 Other long term (current) drug therapy
CPT/HCPCS: 36415; 71045; 80048; 80053; 81001; 82150; 82962; 83605; 83690; 83880; 84484; 85025; 87040; 87804; 93005; 94640; 96365; 96375; 99285; A9270; J1644; J1815; J1956; J2405; J2930; J7030; J7620-GY